=== PATIENT | male | born 1970 | race Caucasian/White ===

== ENCOUNTER 2023-10-03 12:05 | Emergency (ER) | payer MEDICAID, SELFPAY ==
[2023-10-03] VITALS (11 sets, daily range): BP systolic 113–147; BP diastolic 80–104; PULSE 83; RESP 16; TEMP 36.4; O2SAT 95–100; BMI 22.7
[2023-10-03 12:38] LABS: Basophils Percent Auto 0.3 % (0.2-2.0); Eosinophils Percent Auto 0.3 % (0.9-7.0); Hematocrit 44.6 % (42.0-54.0); Hemoglobin 14.6 g/dL (14.0-18.0); Immature Granulocytes Abs Auto 0.01 10^3/uL (0.00-0.03); Immature Granulocytes Pct Auto 0.3 % (0.0-0.5); Lymphocytes Absolute Auto 1.1 10^3/uL (1.2-3.8); Lymphocytes Percent Auto 28.7 % (20.5-60.0); Mean Corpuscular HGB Conc 32.7 g/dL (29.9-35.2); Mean Corpuscular Hemoglobin 30.9 pg (25.9-34.0); Mean Corpuscular Volume 94.5 fL (80.0-94.0); Mean Platelet Volume 9.7 fL (9.5-13.5); Monocytes Absolute Auto 0.7 10^3/uL (0.3-0.8); Monocytes Percent Auto 16.5 % (1.7-12.0); Neutrophils Absolute Auto 2.1 10^3/uL (1.4-6.5); Neutrophils Percent Auto 53.9 % (43.0-75.0); Platelet Count 276 10^3/uL (150-450); Red Blood Count 4.72 10^6/uL (4.70-6.10); Red Cell Distribution Width 13.8 % (11.0-15.0); White Blood Count 3.9 10^3/uL (4.0-11.0)
[2023-10-03 12:41] LABS: Bilirubin Urine NEGATIVE (NEGATIVE); Blood Urine NEGATIVE (NEGATIVE); Clarity Urine CLEAR (CLEAR); Color Urine DK. YELLOW (YELLOW); Glucose Urine UA NEGATIVE (NEGATIVE); Ketones Urine 15 mg/dL (NEGATIVE); Leukocyte Esterase Urine NEGATIVE (NEGATIVE); Nitrite Urine NEGATIVE (NEGATIVE); Protein Urine TRACE mg/dL (NEG/TRACE); Specific Gravity Urine >=1.030 (1.005-1.025); pH Urine 5.5 (5.0-9.0)
--- NOTE | 2023-10-03 12:42 | ED.ABDPAIN1 ---
HPI - Abdominal Pain General Chief Complaint: Abdominal Pain Stated Complaint: ABDOMINAL PAIN Time Seen by Provider: 10/03/23 12:11 Source: patient Mode of arrival: walk-in History of Present Illness HPI narrative: 52-year-old male presents to the emergency department for abdominal pain. He is worried about his liver and his pancreas. He has been drinking heavily recently. The pain seems to be in the lower epigastric area. No vomiting fever or trauma. No constipation or diarrhea. He has no chest pain or shortness of breath. The pain is mild to moderate. Related Data Home Medications Medication Instructions Recorded Confirmed alprazolam 0.5 mg tablet (Xanax) 0.5 mg PO DAILY 10/03/23 10/03/23 Allergies Allergy/AdvReac Type Severity Reaction Status Date / Time No Known Drug Allergies Allergy Verified 10/03/23 12:14 Review of Systems ROS Narrative A ten point review of systems is negative except as noted above. Exam Narrative Exam Narrative: Nurses note and vital signs reviewed and patient is not hypoxic. General: The patient appears well and in no apparent distress. Patient is resting comfortably on cart. Skin: Warm, dry, no pallor noted. There is no rash noted. Head: Normocephalic, atraumatic Eye: Normal conjunctiva, no drainage Ears, Nose, Mouth, and Throat: oral mucosa is moist. Nares patent. Cardiovascular: Regular Rate and Rhythm Respiratory: Patient is in no distress, no accessory muscle use, lungs are clear to auscultation, no wheezing, rales or rhonchi Back: non-tender GI: Soft and nondistended. Minimal tenderness in the lower epigastric region. Musculoskeletal: The patient has no evidence of calf tenderness, no pitting edema, symmetrical pulses noted bilaterally Neurological: A&O, normal speech Psychiatric: Cooperative Constitutional Vital Signs, click to edit/add: Last Vital Signs Temp 97.6 F 10/03/23 12:14 Pulse 83 10/03/23 12:14 Resp 16 10/03/23 12:14 Pulse Ox 98 10/03/23 12:14 O2 Del Method Room Air 10/03/23 12:14 Course Vital Signs Vital signs: Vital Signs Temperature 97.6 F 10/03/23 12:14 Pulse Rate 83 10/03/23 12:14 Respiratory Rate 16 10/03/23 12:14 Pulse Oximetry 98 10/03/23 12:14 Oxygen Delivery Method Room Air 10/03/23 12:14 Temperature 97.6 F 10/03/23 12:14 Pulse Rate 83 10/03/23 12:14 Respiratory Rate 16 10/03/23 12:14 Pulse Oximetry 98 10/03/23 12:14 Oxygen Delivery Method Room Air 10/03/23 12:14 MDM - Abdominal Pain MDM Narrative Medical decision making narrative: Workup including CAT scan is negative and he is able to be discharged home. He was recommended to cut back on alcohol consumption. Treatment diagnosis and follow-up were discussed with the patient. Differential Diagnosis Differential diagnosis: Likely abdominal pain, constipation, diverticulitis and pancreatitis Lab Data Attestation: I reviewed the patient's lab results. Labs: Lab Results 10/03/23 10/03/23 Range/Units 12:19 12:25 WBC 3.9 L (4.0-11.0) 10^3/uL RBC 4.72 (4.70-6.10) 10^6/uL Hgb 14.6 (14.0-18.0) g/dL Hct 44.6 (42.0-54.0) % MCV 94.5 H (80.0-94.0) fL MCH 30.9 (25.9-34.0) pg MCHC 32.7 (29.9-35.2) g/dL RDW 13.8 (11.0-15.0) % Plt Count 276 (150-450) 10^3/uL MPV 9.7 (9.5-13.5) fL Neut % (Auto) 53.9 (43.0-75.0) % Lymph % (Auto) 28.7 (20.5-60.0) % [place] % (Auto) 16.5 H (1.7-12.0) % Eos % (Auto) 0.3 L (0.9-7.0) % Baso % (Auto) 0.3 (0.2-2.0) % Neut # (Auto) 2.1 (1.4-6.5) 10^3/uL Lymph # (Auto) 1.1 L (1.2-3.8) 10^3/uL [place] # (Auto) 0.7 (0.3-0.8) 10^3/uL Eos # (Auto) 0.0 (0.0-0.7) 10^3/uL Baso # (Auto) 0.0 (0.0-0.1) 10^3/uL Abs Immat Gran (auto) 0.01 (0.00-0.03) 10^3/uL Imm/Tot Granulo (auto) 0.3 (0.0-0.5) % Sodium 139 (136-145) mmol/L Potassium 3.6 (3.5-5.1) mmol/L Chloride 99 (98-107) mmol/L Carbon Dioxide 30.6 (21.0-32.0) mmol/L Anion Gap 13.0 BUN 13.0 (7.0-18.0) mg/dL Creatinine 1.02 (0.70-1.30) mg/dL Est GFR ( Amer) >60 (>=60) Est GFR (Non-Af Amer) >60 (>=60) BUN/Creatinine Ratio 12.7 Glucose 87 (74-106) mg/dL Calcium 9.2 (8.5-10.1) mg/dL Total Bilirubin 0.6 (0.2-1.0) mg/dL Direct Bilirubin 0.1 (0.0-0.2) mg/dL AST 24 (15-37) U/L ALT 36 (16-63) U/L Alkaline Phosphatase 57 (46-116) U/L Total Protein 8.3 H (6.4-8.2) g/dL Albumin 4.3 (3.4-5.0) g/dL Globulin 4.0 g/dL Albumin/Globulin Ratio 1.1 Amylase 81 (25-115) U/L Lipase 57.0 (16.0-77.0) U/L Urine Color Dk. yellow (YELLOW) Urine Clarity Clear (CLEAR) Urine pH 5.5 (5.0-9.0) Ur Specific [place] >=1.030 A (1.005-1.025) Urine Protein Trace (NEG/TRACE) mg/dL Urine Glucose (UA) Negative (NEGATIVE) mg/dL Urine Ketones 15 A (NEGATIVE) mg/dL Urine Occult Blood Negative (NEGATIVE) Urine Nitrite Negative (NEGATIVE) Urine Bilirubin Negative (NEGATIVE) Urine Urobilinogen 1.0 (0.2-1.0) EU/dL Ur Leukocyte Esterase Negative (NEGATIVE) Urine RBC 0-2 (0-2) #/HPF Urine WBC 0-2 A (NONE SEEN) #/HPF Ur Squamous Epith Cells Rare (NONE/RARE) #/LPF Urine Crystals Seen A (None Seen) #/HPF Amorphous Sediment Few Urine Bacteria None seen (NONE SEEN) #/HPF Urine Casts Seen A (NONE SEEN) #/LPF Hyaline Casts Many Urine Mucus Moderate A (NONE SEEN) Ethanol Quant <3 mg/dL Imaging Data CT scan - abdomen: Radiologist's impression: ITS Impressions Abdomen/Pelvis CT 10/03/23 13:00 IMPRESSION: 1. No acute findings. 2. Duodenal diverticulum. 3. Sigmoid diverticulosis. Electronically authenticated by: TYLER KNOWLES Date: 10/03/2023 13:51 Discharge Plan Discharge Stand Alone Forms: Portal Instructions Chief Complaint: Abdominal Pain Clinical Impression: Abdominal pain Patient Disposition: Home, Self-Care Time of Disposition Decision: 14:10 Condition: Good Mode of Transportation: Private Vehicle Prescriptions / Home Meds: No Action alprazolam [Xanax] 0.5 mg tablet 0.5 mg PO DAILY Instructions: Abdominal Pain (ED) Referrals: Physician,Non-Staff, MD [Primary Care Provider] - 1 week
[2023-10-03 12:52] LABS: Bacteria Urine NONE SEEN #/HPF (NONE SEEN); Crystals Seen? Seen #/HPF (None Seen); Mucus Urine MODERATE (NONE SEEN); RBC Urine 0-2 #/HPF (0-2); Squamous Epithelial Cell Urine RARE #/LPF (NONE/RARE); WBC Urine 0-2 #/HPF (NONE SEEN)
[2023-10-03 12:53] LABS: Amorphous Sediment Urine FEW; Cast Seen? SEEN #/LPF (NONE SEEN); Hyaline Casts Urine MANY
[2023-10-03 12:53] LABS: Alanine Aminotransferase 36 U/L (16-63); Albumin Globulin Ratio 1.1; Albumin Level 4.3 g/dL (3.4-5.0); Alkaline Phosphatase 57 U/L (46-116); Amylase 81 U/L (25-115); Aspartate Amino Transferase 24 U/L (15-37); BUN Creatinine Ratio 12.7; Bilirubin Direct 0.1 mg/dL (0.0-0.2); Bilirubin Total 0.6 mg/dL (0.2-1.0); Calcium 9.2 mg/dL (8.5-10.1); Carbon Dioxide 30.6 mmol/L (21.0-32.0); Chloride 99 mmol/L (98-107); Estimated GFR (African America >60 (>=60); Estimated GFR (Non-African Ame >60 (>=60); Glucose 87 mg/dL (74-106); Potassium 3.6 mmol/L (3.5-5.1); Sodium 139 mmol/L (136-145); Total Protein 8.3 g/dL (6.4-8.2)
--- NOTE | 2023-10-03 13:00 | CT_ITS ---
The [address] [address] Patient Name: TOBY SIMON MRN: [id number] date: 1970 Sex: M Assigned Patient Location: ER Current Patient Location: Accession/Order Number: [id number] Exam Date: 10/03/2023 13:15 Report Date: 10/03/2023 13:51 At the request of: SOLEDAD TRINIDAD Procedure: CT abdomen pelvis w con CT abdomen pelvis w con, 10/03/2023 1:15 PM EDT INDICATION: Upper abdominal pain, intermittent x2 months. COMPARISON: CT abdomen and pelvis 08/02/2022 TECHNIQUE: Axial images of the abdomen and pelvis were obtained after the administration of IV contrast. Multiplanar reformatted images were generated and reviewed as needed. Dose reduction techniques were achieved by using automated exposure control and/or adjustment of mA and/or kV according to patient size and/or use of iterative reconstruction technique. FINDINGS: No consolidation or effusion. The liver, gallbladder, pancreas, spleen and adrenals are unremarkable. Symmetric nephrograms without evidence of obstruction. No urolithiasis. No urinary bladder wall thickening or perivesicular fat stranding. Central calcifications within a normal-sized prostate gland. No aortic aneurysm. No bowel obstruction or gross findings of acute inflammation. 1.6 cm diverticulum third portion of the duodenum. Normal appendix. Sigmoid diverticulosis. No pneumatosis, pneumoperitoneum or ascites. No mesenteric or retroperitoneal lymphadenopathy. No acute fracture. CT/CT abdomen pelvis w con IMPRESSION: 1. No acute findings. 2. Duodenal diverticulum. 3. Sigmoid diverticulosis. Electronically authenticated by: TYLER KNOWLES Date: 10/03/2023 13:51
[2023-10-03 13:07] LABS: Ethanol <3 mg/dL
--- NOTE | 2023-10-03 17:10 | PC.NURSE ---
Patient called the ER wanting to discuss more lab results with this RN. Patient educated on lab result questions that patient had. Pt instructed to call PCP to discuss further testing that is not performed in the ER. Pt states understanding. This RN educated patient for approximately 12 minutes on the phone to discuss lab results.
== END 2023-10-03 14:24 | disposition home or self-care (01) ==
PROVIDERS: Emergency Provider Emergency Medicine
DX: R10.9 Unspecified abdominal pain (principal); Z79.899 Other long term (current) drug therapy
CPT/HCPCS: 36415; 74177; 80048; 80076; 80320; 81001; 82150; 83690; 85025; 99284; Q9967

== ENCOUNTER 2024-05-20 12:52 | Outpatient (OUT) | payer MEDICAID, SELFPAY ==
[2024-05-20 13:49] LABS: Basophils Percent Auto 0.4 % (0.2-2.0); Eosinophils Absolute Auto 0.1 10^3/uL (0.0-0.7); Eosinophils Percent Auto 1.3 % (0.9-7.0); Hematocrit 38.2 % (42.0-54.0); Hemoglobin 12.7 g/dL (14.0-18.0); Immature Granulocytes Abs Auto 0.01 10^3/uL (0.00-0.03); Immature Granulocytes Pct Auto 0.2 % (0.0-0.5); Lymphocytes Absolute Auto 1.8 10^3/uL (1.2-3.8); Lymphocytes Percent Auto 37.2 % (20.5-60.0); Mean Corpuscular HGB Conc 33.2 g/dL (29.9-35.2); Mean Corpuscular Hemoglobin 31.7 pg (25.9-34.0); Mean Corpuscular Volume 95.3 fL (80.0-94.0); Mean Platelet Volume 10.1 fL (9.5-13.5); Monocytes Absolute Auto 0.4 10^3/uL (0.3-0.8); Monocytes Percent Auto 8.5 % (1.7-12.0); Neutrophils Absolute Auto 2.5 10^3/uL (1.4-6.5); Neutrophils Percent Auto 52.4 % (43.0-75.0); Platelet Count 288 10^3/uL (150-450); Red Blood Count 4.01 10^6/uL (4.70-6.10); Red Cell Distribution Width 12.8 % (11.0-15.0); White Blood Count 4.7 10^3/uL (4.0-11.0)
[2024-05-20 14:09] LABS: Erythrocyte Sedimentation Rate 11 mm/hr (<=20)
[2024-05-20 14:19] LABS: C Reactive Protein <0.50 mg/dL (<=0.50); Uric Acid 3.2 mg/dL (3.5-7.2)
[2024-05-21 09:09] LABS: Lyme Total Antibody CIA Negative (Negative)
[2024-05-21 12:09] LABS: Anti-DNA (DS) Ab Qn 1 IU/mL (0-9); Antichromatin Antibodies <0.2 AI (0.0-0.9); RNP Antibodies <0.2 AI (0.0-0.9); Rheumatoid Factor (RF) 10.8 IU/mL (<14.0); Sjogren's Anti-SS-A <0.2 AI (0.0-0.9); Sjogren's Anti-SS-B <0.2 AI (0.0-0.9)
[2024-05-22 13:09] LABS: Antinuclear Antibodies, IFA Negative (.)
== END 2024-05-20 12:53 | disposition home or self-care (01) ==
PROVIDERS: Visit Provider Orthopaedic Surgery
DX: M25.50 Pain in unspecified joint (principal)
CPT/HCPCS: 36415; 81374; 84550; 85025; 85652; 86038; 86140; 86618

== ENCOUNTER 2024-08-07 07:31 | Day surgery (SDC) | payer MEDICAID, SELFPAY ==
--- NOTE | 2024-08-07 07:36 | MR_ITS ---
The [place] [id number] Patient Name: TOBY SIMON MRN: [id number] date: 1970 Sex: M Assigned Patient Location: MRI Current Patient Location: MRI Accession/Order Number: [id number] Exam Date: 08/07/2024 08:45 Report Date: 08/08/2024 07:36 At the request of: LUCA ZAMORA Procedure: MR hip LT w con HISTORY: Chronic left hip pain for multiple years. Evaluate for labral tear. MRI left hip 08/07/2024. COMPARISON: CT scan abdomen and pelvis 10/03/2023. TECHNIQUE: Multiplanar, multisequence MRI images of the pelvis and left hip were obtained following the fluoroscopic guided administration of dilute gadolinium into the left hip joint. FINDINGS: There is no evidence of avascular necrosis or fracture of the left hip. There is linear extension of contrast partially between the superolateral aspect of the labrum and the adjacent acetabulum. There is also mild thinning of the adjacent superolateral aspect of the acetabular cartilage in this region. The remainder of the labrum appears intact. There is a small amount of soft tissue edema along the lateral aspect of the left greater trochanter. However, no significant gluteal tendinopathy is seen. MR/MR hip LT w con IMPRESSION: 1. 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 2. Possible mild left greater trochanteric bursitis. Electronically authenticated by: NOEL FUENTES Date: 08/08/2024 07:36
--- NOTE | 2024-08-07 07:37 | FL_ITS ---
The [address] [address] Patient Name: TOBY SIMON MRN: [id number] date: 1970 Sex: M Assigned Patient Location: MRI Current Patient Location: MRI Accession/Order Number: [id number] Exam Date: 08/07/2024 08:00 Report Date: 08/07/2024 08:54 At the request of: LUCA ZAMORA Procedure: FL arthrogram hip EXAMINATION: FL arthrogram hip, FL guided needle placement HISTORY: Rule out labral tear COMPARISON: No relevant comparison available. TECHNIQUE: An arthrogram was performed under fluoroscopic guidance using non-ionic contrast material in the usual sterile manner after obtaining informed consent. Standard level fluoroscopic mode of operation utilized. 35 seconds of fluoroscopy. 1.97 mCi FINDINGS: JOINT: Left hip NEEDLE: 25 gauge, 3.5 spinal needle. MEDICATION: 2cc buffered 1% lidocaine for subcutaneous anesthesia 5cc Omnipaque-240 iodinated contrast to visualize the joint space 0.2 mL Dotarem, 5 mL 1% lidocaine. TECHNIQUE: Anterior approach with prior localization of the femoral artery. A single stick was successful in gaining access to the joint space. CLINICAL: No pain before or after the procedure COMPLICATIONS: None. BONES: Normal. No erosion, osteophyte, fracture, or bony lesion. CARTILAGE: Normal. No visible erosion or interruption. CAPSULE: Normal. No visible capsular laxity or labrum tear. EDGAR-ARTICULAR: Normal. No visible edgar-articular soft tissue abnormality. LOOSE BODIES: None. OTHER: Negative. PLEASE ALSO SEE THE SEPARATE MRI ARTHROGRAM PROCEDURE REPORT. FL/FL arthrogram hip IMPRESSION: Technically successful left hip arthrogram Electronically authenticated by: WALTER HOFF Date: 08/07/2024 08:54
--- NOTE | 2024-08-07 07:37 | FL_ITS ---
The [address] [address] Patient Name: TOBY SIMON MRN: [id number] date: 1970 Sex: M Assigned Patient Location: MRI Current Patient Location: MRI Accession/Order Number: [id number] Exam Date: 08/07/2024 08:00 Report Date: 08/07/2024 08:54 At the request of: LUCA ZAMORA Procedure: FL guided needle placement EXAMINATION: FL arthrogram hip, FL guided needle placement HISTORY: Rule out labral tear COMPARISON: No relevant comparison available. TECHNIQUE: An arthrogram was performed under fluoroscopic guidance using non-ionic contrast material in the usual sterile manner after obtaining informed consent. Standard level fluoroscopic mode of operation utilized. 35 seconds of fluoroscopy. 1.97 mCi FINDINGS: JOINT: Left hip NEEDLE: 25 gauge, 3.5 spinal needle. MEDICATION: 2cc buffered 1% lidocaine for subcutaneous anesthesia 5cc Omnipaque-240 iodinated contrast to visualize the joint space 0.2 mL Dotarem, 5 mL 1% lidocaine. TECHNIQUE: Anterior approach with prior localization of the femoral artery. A single stick was successful in gaining access to the joint space. CLINICAL: No pain before or after the procedure COMPLICATIONS: None. BONES: Normal. No erosion, osteophyte, fracture, or bony lesion. CARTILAGE: Normal. No visible erosion or interruption. CAPSULE: Normal. No visible capsular laxity or labrum tear. EDGAR-ARTICULAR: Normal. No visible edgar-articular soft tissue abnormality. LOOSE BODIES: None. OTHER: Negative. PLEASE ALSO SEE THE SEPARATE MRI ARTHROGRAM PROCEDURE REPORT. FL/FL guided needle placement IMPRESSION: Technically successful left hip arthrogram Electronically authenticated by: WALTER HOFF Date: 08/07/2024 08:54
--- OUTSIDE RECORDS SUMMARY | 2024-08-07 07:39 | XMS_ITS | CCD ---
Author Organization [facility] Care Team Providers Care Power System Operator Name Role Phone Unavailable Primary Care Provider PATTY La Consulting Unavailable WALTER HILARIO Admitting Unavailable WALTER HILARIO Attending Unavailable YAMILA, DANNY Attending Unavailable MECHE ARSHAD Consulting Unavailable DANNY DRISCOLL Admitting Unavailable REQUEST, NONE LISTED Primary Care Unavaila ble VENKAT FERRER Consulting Unavailable REQUEST, NONE LISTED Admitting Unavaila ble REQUEST, NONE LISTED Primary Care Unavaila ble REQUEST, NONE LISTED Consulting Unavaila ble REQUEST, NONE LISTED Attending Unavaila Kari Canales Unavailable Unallocated , Noms Provider Primary Care Provi anand JR. TEOFILO, LUCA Dos Santos Attending Unavaila bhavesh RED JR., GEORGE C Referring Unavaila Gómez Oropeza Attending Unavailab Gómez Ivory Admitting Unavailab Kari Maya Primary Care Unavailable Allergies Allergy Classification Reported Allergen(s) Allergy Type Date of Onset Reaction(s) Facility (15 sources) traZODone Drug Allergy Unknown, Comment:erecti on issue [facility] Other (5 sources) Allergies Reconciled Propensity to adverse reactions Unknown [facility] Other (1 source) traZODone Drug Allergy 4 [facility] Repository Medications Current Medications Medication Drug Class(es) Dates Sig (Normalized) Sig (Original) acetaminophen 500 mg oral tablet (1 source) Start: 10-03-2020 acetaminophen (TYLENOL) tablet 1,000 mg ALPRAZolam 1 mg oral tablet (10 sources) Benzodiazepine Start: 08-20-2023 take 1 tablet by mouth four times daily as needed ALPRAZolam 1 MG 1 tablet Orally four times a day PRN for 30 days Jul, Active Start: 07-19-2023 take 1 tablet by tres four times daily as needed ALPRAZolam 1 MG 1 tablet Orally four times a day PRN for 30 days Jun, Active Start: 06-19-2023 take 1 tablet by tres four times daily as needed ALPRAZolam 1 MG 1 tablet Orally four times a day PRN for 30 days May, Active Start: 05-18-2023 take 1 tablet by tres four times daily as needed ALPRAZolam 1 MG 1 tablet Orally four times a day PRN for 30 days Apr, Active Start: 03-20-2023 take 1 tablet by tres four times daily as needed ALPRAZolam 1 MG 1 tablet Orally four times a day PRN for 30 days Feb, Active Start: 01-09-2023 take 1 tablet by tres four times daily as needed ALPRAZolam 1 MG 1 tablet Orally four times a day PRN for 30 days Dec, Active Start: 12-04-2022 take 1 tablet by tres four times daily as needed ALPRAZolam 1 MG 1 tablet Orally four times a day PRN for 30 days November, Active Start: 09-28-2022 take 1 tablet by tres four times daily as needed ALPRAZolam 1 MG 1 tablet Orally four times a day PRN for 30 days Oct, Active ascorbic acid 500 mg oral tablet (1 source) Vitamin C take 3 tablets by mouth once daily ascorbic acid (VITAMIN C) 500 MG tablet Take 1,500 mg by mouth daily 0 Active finasteride 5 mg oral tablet (11 sources) 5-alpha Reductase Inhibitor take 1 tablet by mouth every twenty-four hours Finasteride 5 MG 1 tablet Orally Once a day for 90 days Active take 1.25 mg by mouth once daily finasteride (PROSCAR) 5 MG tablet Take 1.25 mg by mouth daily 0 Active methylPREDNISolone (3 sources) Corticosteroid Start: 05-12-2024 methylPREDNISolone (Medrol Dospak) 4 MG tablets Indications: Left hip pain Follow schedule on package instructions 21 tablet 05/12/2024 Active 1 ml morphine sulfate 2 mg/ml cartridge (2 sources) Opioid Agonist Start: 10-02-2020 take 2 mg by mouth every four hours as needed for pain 2 mg, Intravenous, EVERY 4 HOURS PRN, Pain Moderate (4-6), Starting 10/02/20 at 2152 If oral and IV narcotics ordered, use oral first and only use IV if oral is ineffective or cannot take oral. D o Not give oral and IV within 1 hour of each other unless specifically ordered. Start: 10-02-2020 End: 10-02-2020 morphine injection 4 mg 2 ml ondansetron 2 mg/ml injection (1 source) Serotonin-3 Receptor Antagonist Start: 10-02-2020 4 mg, Intravenous, EVERY 8 HOURS PRN, Nausea, Vomiting, Starting 10/02/20 at 2152 opzelura 1.5 % cream (2 sources) Start: 09-28-2022 Opzelura 1.5 % 1 application Externally Twice a day for 30 days Sep, Active ruxolitinib 15 MG/ML Topical Cream [Opzelura] (8 sources) Start: 09-28-2022 Opzelura 1.5 % 1 application Externally Twice a day for 30 days Sep, Active 3 ml sodium chloride 9 mg/ml injection (3 sources) Start: 10-02-2020 Intravenous, a t 75 mL/hr, CONTINUOUS, Starting 10/02/20 at 2214 Start: 10-02-2020 10 mL, Intrave nous, EVERY 12 HOURS SCHEDULED (2 times per day), First dose on 10/02/20 at 221 Start: 10-02-2020 take 10 mL intraveno us route once as needed 10 mL, Intravenous, PRN, Line Care, After every IV line use, Starting 10/02/20 at 2152 vitamin b 12 1 mg oral table t (1 source) Vitamin B12 vitamin B-12 (CY ANOCOBALAMIN) 1000 MCG tablet Take 250 mcg by mouth daily 0 Active VITAMIN D PO (1 source) VITAMIN D PO William e by mouth daily 0 Active Completed/Discontinued Medications Medication Drug Class(es) Dates Sig (Normalized) Sig (Original) ceFAZolin (ANCEF) 2000 mg in dextrose 5 % 50 mL IVPB (1 source) Start: 10-02-2020 End: 10-02-2020 ceFAZolin (ANCEF) 2000 mg in dextrose 5 % 50 mL IVPB 10 ml lidocaine hydrochloride 10 mg/ml injection (1 source) Antiarrhythmic, Amide Local Anesthetic Start: 10-02-2020 End: 10-02-2020 lidocaine 1 % injection 20 mL sodium chloride 0.9 % 9.5 mL with phenylephrine (BO-SYNEPHRINE) 5 mg (1 source) Start: 10-02-2020 End: 10-02-2020 sodium chloride 0.9 % 9.5 mL with phenylephrine (BO-SYNEPHRINE) 5 mg Problems Problem Classification Problem Date Documented Da te Episodic/Chronic Abdominal pain (4 sources) Unspecified abdominal pain; Translations: [UNSPECIFIED ABDOMINAL PAIN] Onset: 08-02-2022 Episodic Anxiety disorders (20 sources) Generalized anxiety disorder; Translations: [Generalized anxiety disorder] Chronic Disorders of lipid metabolism (5 sources) Hyperlipidemia; Translations: [Hyperlipidemia, unspecified] Chronic Genitourinary symptoms and ill-defined conditions (2 sources) Prolonged erection of penis; 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] Onset: 10-02-2020 10-02-2020 Chronic Joint disorders and dislocations; trauma-related (2 sources) Acetabular labrum tear 05-12-2024 Chronic Other circulatory disease (5 sources) Elevated blood-pressure reading without diagnosis of hypertension; Translations: [Elevated blood-pressure reading, without diagnosis of hypertension] Episodic Other non-traumatic joint disorders (2 sources) Hip pain; Translations: [Pain in left hip] 05-12-2024 Episodic Other non-traumatic joint disorders (2 sources) Multiple joint pain; Translations: [Pain in unspecified joint] 05-12-2024 Episodic Other nutritional; endocrine; and metabolic disorders (10 sources) Body mass index 30+ - obesity; Translations: [Body mass index (BMI) 32.0-32.9, adult] Chronic Other nutritional; endocrine; and metabolic disorders (5 sources) Obese class I; Translations: [Body mass index (BMI) 32.0-32.9, adult] Chronic Other screening for suspected conditions (not mental disorders or infectious disease) (1 source) Abnormal findings on diagnostic imaging of other abdominal regions, including retroperitoneum; Translations: [ABN FIND DX IMAG OTH AB REGION W/RP] Onset: 08-04-2022 Episodic Other skin disorders (15 sources) Alopecia; Translations: [Nonscarring hair loss, unspecified] Episodic Other skin disorders (10 sources) Vitiligo; Translations: [Vitiligo] Episodic Sprains and strains (2 sources) Acetabular labrum tear; Translations: [Other sprain of left hip, initial encounter] 05-12-2024 Episodic Results Test Name Value Interpretation Reference Range Facility ALL CBC WITH AUTO DIFFon BASOPHILS ABSOLUTE AUTO 0 [facility] Basophils/100 WBC (Bld) 0.4 % 0.2 - 2.0 % [facility] Eosinophils/100 WBC (Bld) 1.3 % 0.9 - 7.0 % [facility] Erythrocyte distribution width (RBC) [Ratio] 12.8 % 11.0 - 15.0 % [facility] Hematocrit (Bld) [Volume fraction] 38.2 % Low 42.0 - 54.0 % [facility] Health[facility] e Hemoglobin (Bld) [Mass/Vol] 12.7 g/dL Low 14.0 - 18.0 g/dL [facility] IMMATURE GRANULOCYTES ABS AUTO 0.01 [facility] Immature granulocytes/100 WBC (Bld) 0.2 % 0.0 - 0.5 % [facility] Interpretation and review of laboratory results Abnormal [facility] LYMPHOCYTES ABSOLUTE AUTO 1.8 [facility] Lymphocytes/100 WBC (Bld) 37.2 % 20.5 - 60.0 % [facility] MCH (RBC) [Entitic mass] 31.7 pg 25.9 - 34.0 pg [facility] MCHC (RBC) [Mass/Vol] 33.2 g/dL 29.9 - 35.2 g/dL [facility] MCV (RBC) [Entitic vol] 95.3 fL High 80.0 - 94.0 fL [facility] MONOCYTES ABSOLUTE AUTO 0.4 [facility] Monocytes/100 WBC (Bld) 8.5 % 1.7 - 12.0 % [facility] NEUTROPHILS ABSOLUTE AUTO 2.5 [facility] Neutrophils/100 WBC (Bld) 52.4 % 43.0 - 75.0 % [facility] Platelet mean volume (Bld) [Entitic vol] 10.1 fL 9.5 - 13.[address] [facility] Healthc are TBH EO # 0.1 [facility] PLT 288 [facility] TB RBC 4.01 Low [facility] WBC 4.7 [facility] Cytoo e XR Hip - left 3 Viewson 10-2 Imaging Result: AP and lateral left hip showed femoral head to be well centered in the acetabulum without evidence of subluxation or dislocation. There was good preservation of the joint space. There was no gross evidence of degenerative changes. There was no acute bony process including but limited to fracture and/or dislocation. Impression: No acute bony process left hip [facility] Radiology Study observation (narrative) [facility] CBC AUTO DIFFon 08-02-2022 BASO # 0.0 103/ul Normal 0.0-0.1 [facility] Comment on above: Performed By: #### C BC #### [facility] [address] [place] [address] Dr. Cedric Hamilton Basophils/100 WBC (Bld) 0.7 % Normal 0.2-2.0 [facility] Comment on above: Performed By: #### C BC #### [facility] [address] [place] [address] Dr. Cedric Hamilton EO # 0.1 103/ul Normal 0.0-0.7 [facility] Comment on above: Performed By: #### C BC #### [facility] [address] [place] [address] Dr. Cedric Hamilton Eosinophils/100 WBC (Bld) 2.4 % Normal 0.9-7.0 [facility] Comment on above: Performed By: #### C BC #### [facility] [address] [place] [address] Dr. Cedric Hamilton Erythrocyte distribution width (RBC) [Ratio] 13.0 % Normal 11.0-15.0 [facility] Comment on above: Performed By: #### C BC #### [facility] [address] [place] [address] Dr. Cedric Hamilton Hematocrit (Bld) [Volume fraction] 44.1 % Normal 42.0-54.0 [facility] Comment on above: Performed By: #### C BC #### [facility] [address] [place] [address] Dr. Cedric Hamilton Hemoglobin (Bld) [Mass/Vol] 14.2 g/dL Normal 14.0-18.0 [facility] Comment on above: Performed By: #### C BC #### [facility] [address] [place] [address] Dr. Cedric Hamilton IG # 0.01 10e3/ul Normal 0.00-0.03 [facility] Comment on above: Performed By: #### C BC #### [facility] [address] [place] [address] Dr. Cedric Hamilton IG % 0.2 % Normal 0.0-0.5 [facility] Comment on above: Performed By: #### C BC #### [facility] [address] [place] [address] Dr. Cedric Hamilton LYMPH # 1.6 103/ul Normal 1.2-3.8 [facility] Comment on above: Performed By: #### C BC #### [facility] [address] [place] [address] Dr. Cedric Hamilton Lymphocytes/100 WBC (Bld) 35.6 % Normal 20.5-60.0 [facility] Comment on above: Performed By: #### C BC #### [facility] [address] [place] [address] Dr. Cedric Hamilton MANUAL DIFF REQ NO Normal [facility] Comment on above: Performed By: #### C BC #### [facility] [address] [place] [address] Dr. Cedric Hamilton MCH (RBC) [Entitic mass] 31.6 pg Normal 25.9-34.0 [facility] Comment on above: Performed By: #### C BC #### [facility] [address] [place] [address] Dr. Cedric Hamilton MCHC (RBC) [Mass/Vol] 32.2 g/dL Normal 29.9-35.2 [facility] Comment on above: Performed By: #### C BC #### [facility] [address] [place] [address] Dr. Cedric Hamilton MCV (RBC) [Entitic vol] 98.2 fL Critically high 80.0-94.0 [facility] Comment on above: Performed By: #### C BC #### [facility] [address] [place] [address] Dr. Cedric Hamilton MONO # 0.7 103/ul Normal 0.3-0.8 [facility] Comment on above: Performed By: #### C BC #### [facility] [address] [place] [address] Dr. Cedric Hamilton Monocytes/100 WBC (Bld) 14.6 % Critically high 1.7-12.0 [facility] Comment on above: Performed By: #### C BC #### [facility] [address] [place] [address] Dr. Cedric Hamilton NEUT # 2.1 103/ul Normal 1.4-6.5 [facility] Comment on above: Performed By: #### C BC #### [facility] [address] [place] [address] Dr. Cedric Hamilton Neutrophils/100 WBC (Bld) 46.5 % Normal 43.0-75.0 [facility] Comment on above: Performed By: #### C BC #### [facility] [address] [place] [address] Dr. Cedric Hamilton Platelet mean volume (Bld) [Entitic vol] 8.9 fL Critically low 9.5-13.5 [facility] Comment on above: Performed By: #### C BC #### [facility] [address] [place] [address] Dr. Cedric Hamilton PLT 367 103/ul Normal 150-450 [facility] Comment on above: Performed By: #### C BC #### [facility] [address] [place], [place] [id number] Dr. Cedric Hamilton RBC 4.49 106/ul Critically low 4.70-6.10 [facility] Comment on above: Performed By: #### C BC #### [facility] [address] [place] [address] Dr. Cedric Hamilton WBC 4.5 103/ul Normal 4.0-11.0 [facility] Comment on above: Performed By: #### C #### [facility] [address] [address] ABD/PELV W CONon 08-02-19 CT ABD/PELV W CON CT SCAN OF THE ABDOMEN AND PELVIS WITH CONTRAST, 08/02/2022 3:20 PM EST COMPARISON: None. CLINICAL HISTORY: GENERALIZED ABDOMINAL PAIN that radiates to the left side of the back. Patient has no history of kidney stones. TECHNIQUE: 3 mm axial images performed through the abdomen and pelvis following the intravenous administration of 100 mL of Omnipaque 300. 3 mm sagittal and coronal MPR reconstructions performed. Dose reduction techniques were achieved by using automated exposure control and/or adjustment of mA and/or kV according to patient size and/or use of iterative reconstruction technique. ABDOMINAL CT SCAN FINDINGS: Allowing for some motion over the lung bases, they are clear. Normal heart size with no significant pericardial effusion. Mild fatty infiltration of the liver. Remaining solid organs and gallbladder have a normal appearance. There is a small air-filled diverticulum projecting superiorly from the distal third portion of the duodenum. There is some adjacent fatty stranding seen just to the left of midline of the superior mesenteric artery and also partially encasing the celiac artery and unclear if it is related due to the diverticulum (image #[id number], series 3 and image #[id number], series 5). Some nonenlarged retroperitoneal lymph nodes are present. Small fat-containing umbilical wall hernia with an opening orifice measuring 1.2 cm (image #82, series 3). Pelvic CT findings: Prostate and seminal vesicles have a normal appearance. Partially distended urinary bladder is unremarkable in appearance. Diverticulosis of the colon without clear CT findings to suspect colonic diverticulitis. Appendix is normal. No free fluid. No acute osseous abnormality. IMPRESSION: 1. Mild fatty infiltration of the liver. 2. Some nonspecific fatty stranding seen just to the left of midline of the superior mesenteric artery and partially encasing the celiac artery is in close proximity to a small diverticulum projecting superiorly from the distal third portion of the duodenum and likely unrelated but the possibility of subtle acute duodenal diverticulitis would be difficult to exclude. The latter is felt to be a less likely consideration. The fatty stranding is nonspecific but precautionary follow-up CT scan of the abdomen and pelvis with IV contrast recommended in 3 months to assess for any interval change. 3. Some diverticulosis of the colon without CT findings to suspect any acute colonic diverticulitis. No bowel obstruction. The appendix is normal. 4. Small fat-containing umbilical hernia. Electronically authenticated by: Axel FERRER Date: 2022-08-02 17:07 Normal [facility] ER URINE PROFILEon 3 Bilirubin Ql (U) Negative Normal NEGATIVE [facility] Comment on above: Performed By: #### E RUR ####[facility] [address] [place], [place] [address]Dr. Mailan Hamilton Clarity (U) CLEAR Normal CLEAR [facility] Comment on above: Performed By: #### E RUR ####[facility] [address] [place], [place] [address]Dr. Yilan Hamilton Color (U) YELLOW Normal YELLOW [facility] Comment on above: Performed By: #### E RUR ####[facility] [address] [place], [place] [address]Dr. Yilan Hamilton ERUAHD A micrscopic examination will be performed if indicated. Normal [facility] Comment on above: Performed By: #### E RUR ####[facility] [address] [place], [place] [address]Dr. Yilan Hamilton Glucose Ql (U) Negative Normal NEGATIVE [facility] Comment on above: Performed By: #### E RUR ####[facility] [address] [place], [place] [address]Dr. Yilan Hamilton Hemoglobin Ql (U) Negative Normal NEGATIVE [facility] Comment on above: Performed By: #### E RUR ####[facility] [address] [place], [place] [address]Dr. Yilan Hamilton Ketones Ql (U) Negative Normal NEGATIVE [facility] Comment on above: Performed By: #### E RUR ####[facility] [address] [place], [place] [address]Dr. Yilan Hamilton LEUKOCYTES Negative Normal NEGATIVE [facility] Comment on above: Performed By: #### E RUR ####[facility] [address] [place], [place] [address]Dr. Cedric Hamilton Nitrite Ql (U) Negative Normal NEGATIVE [facility] Comment on above: Performed By: #### E RUR ####[facility] [address] [address]Dr. Cedric Hamilton pH (U) 5.5 [pH] Normal 5-9 [facility] Comment on above: Performed By: #### E RUR ####[facility] [address] [address]Dr. Cedric Hamilton SPEC GRAVITY 1.025 Normal 1.005-<=1.025 [facility] Comment on above: Performed By: #### E RUR ####[facility] [address] [address]DrRitesh Hamilton UA PROTEIN Negative Normal NEGATIVE/ TRACE [facility] Comment on above: Performed By: #### E RUR ####[facility] [address] [address]DrRitesh Hamilton UR MICRO IND NOT INDICATED Normal [facility] Comment on above: Performed By: #### E RUR ####[facility] [address] [address]DrRitesh Hamilton Urobilinogen Qn (U) 0.2 {Cherri'U}/dL Normal 0.2 - 1. 0 [facility] Comment on above: Performed By: #### E RUR ####[facility] [address] [address]DrRitesh Hamilton LACTATE/LACTIC ACIDon 2022 Lactate [Moles/Vol] 2.4 mmol/L Critically high 0.4-1.9 [facility] Comment on above: Performed By: #### L ACT #### [facility] [address] [address] [address] Cedric Hamilton Lactate [Moles/Vol] 3.5 mmol/L Critically high 0.4-1.9 [facility] Comment on above: Performed By: #### L ACT #### [facility] [address] [address] [address] Cedric Hamilton LIPASEon 08-02-2022 Lipase [Catalytic activity/Vol] 160.0 U/L Normal 73.0-393.0 [facility] Comment on above: Performed By: #### H STROPN, CMP, LIPA ####[facility] [address] [address]DrRitesh Hamilton PROF 14(COMP METB)on 023 Albumin [Mass/Vol] 3.8 g/dL Normal 3.4-5.0 [facility] Comment on above: Performed By: #### H STROPN, CMP, LIPA ####[facility] [address] [address]DrRitesh Hamilton Albumin/Globulin [Mass ratio] 0.9 {ratio} Normal [facility] Comment on above: Performed By: #### H STROPN, CMP, LIPA ####[facility] [address] [address]DrRitesh Hamilton ALP [Catalytic activity/Vol] 82 U/L Normal 46-116 [facility] Comment on above: Performed By: #### H STROPN, CMP, LIPA ####[facility] [address] [address]Dr. Cedric Hamilton ALT [Catalytic activity/Vol] 26 U/L Normal 16-63 [facility] Comment on above: Performed By: #### H STROPN, CMP, LIPA ####[facility] [address] [address]DrRitesh Hamilton Anion gap [Moles/Vol] 11.5 mmol/L Normal [facility] Comment on above: Performed By: #### H STROPN, CMP, LIPA ####[facility] [address] [address]DrRitesh Hamilton AST [Catalytic activity/Vol] 15 U/L Normal 15-37 [facility] Comment on above: Performed By: #### H STROPN, CMP, LIPA ####[facility] [address] [address]DrRitesh Hamilton Bilirubin [Mass/Vol] 0.3 mg/dL Normal 0.2-1.0 [facility] Comment on above: Performed By: #### H STROPN, CMP, LIPA ####[facility] [address] [address]Dr. Cedric Hamilton Calcium [Mass/Vol] 9.1 mg/dL Normal 8.5-10.1 [facility] Comment on above: Performed By: #### H STROPN, CMP, LIPA ####[facility] [address] [address]Dr. Cedric Hamilton Chloride [Moles/Vol] 103 mmol/L Normal 98-107 [facility] Comment on above: Performed By: #### H STROPN, CMP, LIPA ####[facility] [address] [place], [place] [address]Dr. Cedric Hamilton CO2 [Moles/Vol] 29.4 mmol/L Normal 21.0-32.0 [facility] Comment on above: Performed By: #### H STROPN, CMP, LIPA ####[facility] [address] [place], [place] [address]Dr. Cedric Hamilton Creatinine [Mass/Vol] 0.87 mg/dL Normal 0.70-1.30 [facility] Comment on above: Performed By: #### H STROPN, CMP, LIPA ####[facility] [address] [place], [place] [address]Dr. Cedric Hamilton EGFR-AF SYRIAN >60 Normal >=60 [facility] Comment on above: Performed By: #### H STROPN, CMP, LIPA ####[facility] [address] [place], [place] [address]Dr. Cedric Hamilton EGFR-NON AF SYRIAN >60 Normal >=60 [facility] Comment on above: Performed By: #### H STROPN, CMP, LIPA ####[facility] [address] [place] [address]Dr. Cedric Hamilton Globulin (S) [Mass/Vol] 4.0 g/dL Normal [facility] Comment on above: Performed By: #### H STROPN, CMP, LIPA ####[facility] [address] [place] [address]Dr. Mailucretia Hamilton Glucose [Mass/Vol] 108 mg/dL Critically high 74-106 [facility] Comment on above: Performed By: #### H STROPN, CMP, LIPA ####[facility] [address] [place] [address]Dr. Cedric Hamilton Potassium [Moles/Vol] 3.9 mmol/L Normal 3.5-5.1 [facility] Comment on above: Performed By: #### H STROPN, CMP, LIPA ####[facility] [address] [place] [address]Dr. Cedric Hamilton Protein [Mass/Vol] 7.8 g/dL Normal 6.4-8.2 [facility] Comment on above: Performed By: #### H STROPN, CMP, LIPA ####[facility] [address] [place] [address]Dr. Cedric Hamilton Sodium [Moles/Vol] 140 mmol/L Normal 136-145 [facility] Comment on above: Performed By: #### H STROPN, CMP, LIPA ####[facility] [address] [place] [address]Dr. Cedric Hamilton Urea nitrogen [Mass/Vol] 11.0 mg/dL Normal 7.0-18.0 [facility] Comment on above: Performed By: #### H STROPN, CMP, LIPA ####[facility] [address] [place] [address]Dr. Cedric Hamilton Urea nitrogen/Creatinine [Mass ratio] 12.6 mg/mg Normal [facility] Comment on above: Performed By: #### H STROPN, CMP, LIPA ####[facility] [address] [place] [address]Dr. Cedric Hamilton PROTIMEon 08-02-2022 INR Coag (PPP) [Relative time] 0.94 {INR} Normal [facility] Comment on above: Performed By: #### P TT, PT #### [facility] [address] [address] [address] Cedric Hamilton INR GUIDELINES SEE BELOW Normal [facility] Comment on above: Result Comment: SARY RED INR: 2.0 - 3.0 CONDITIONS NOT LISTED BELOW 2.5 - 3.5 FOR PROSTHETIC HEART VALVE REPLACEMENT 2.5 - 3.5 RECURRENT THROMBOSIS Performed By: #### P TT, PT #### [facility] [address] [address] [address] Cedric Hamilton PT Coag (PPP) [Time] 10.0 s Normal 9.0-11.6 [facility] Comment on above: Performed By: #### P TT, PT #### [facility] [address] [address] [address] Cedric Hamilton PTTon 08-02-2022 aPTT Coag (Bld) [Time] 31.2 s Normal 22.3-36.2 [facility] Comment on above: Performed By: #### P TT, PT #### [facility] [address] [address] [address] Cedric Hamilton TROPONIN, HIGH SENSITIVITYon 08-02-2022 HSTROP 5.7 pg/mL Normal 4.0-76.1 [facility] Comment on above: Result Comment: CUT- OFF POINTS HAVE BEEN ESTABLISHED BASED ON THE FOURTH UNIVERSAL DEFINITIONS OF MYOCARDIAL INFARCTION. THE UPPER REFERENCE LIMIT (URL) OF TROPONIN, DEFINED THE 99TH PERCENTILE OF cTnI DISTRIBUTION IN A REFERENCE POPULATION, HAS BEEN CONFIRMED THE DECISION THRESHOLD FOR ID DIAGNOSIS. Performed By: #### H STROPN, CMP, LIPA #### [facility] [address] [address] [address] Cedric Hamilton CBC AUTO DIFFon 05-04-2022 BASO # 0.0 103/ul Normal 0.0-0.1 [facility] Comment on above: Performed By: #### D ATCBC ####[facility] [address] [place] [address]Dr. Cedric Hamilton Basophils/100 WBC (Bld) 0.6 % Normal 0.2-2.0 [facility] Comment on above: Performed By: #### D ATCBC ####[facility] [address] [place] [address]Dr. Cedric Hamilton EO # 0.2 103/ul Normal 0.0-0.7 [facility] Comment on above: Performed By: #### D ATCBC ####[facility] [address] [place] [address]Dr. Cedric Hamilton Eosinophils/100 WBC (Bld) 3.4 % Normal 0.9-7.0 [facility] Comment on above: Performed By: #### D ATCBC ####[facility] [address] [place], [place] [address]Dr. Cedric Hamilton Erythrocyte distribution width (RBC) [Ratio] 12.5 % Normal 11.0-15.0 [facility] Comment on above: Performed By: #### D ATCBC ####[facility] [address] [place], [place] [address]Dr. Cedric Hamilton Hematocrit (Bld) [Volume fraction] 44.0 % Normal 42.0-54.0 [facility] Comment on above: Performed By: #### D ATCBC ####[facility] [address] [place], [place] [address]Dr. Cedric Hamilton Hemoglobin (Bld) [Mass/Vol] 14.8 g/dL Normal 14.0-18.0 [facility] Comment on above: Performed By: #### D ATCBC ####[facility] [address] [place], [place] [address]Dr. Cedric Hamilton IG # 0.01 10e3/ul Normal 0.00-0.03 [facility] Comment on above: Performed By: #### D ATCBC ####[facility] [address] [place], [place] [address]Dr. Cedric Hamilton IG % 0.2 % Normal 0.0-0.5 [facility] Comment on above: Performed By: #### D ATCBC ####[facility] [address] [place], [place] [address]Dr. Cedric Hamilton LYMPH # 1.7 103/ul Normal 1.2-3.8 [facility] Comment on above: Performed By: #### D ATCBC ####[facility] [address] [place], [place] [address]Dr. Cedric Hamilton Lymphocytes/100 WBC (Bld) 36.5 % Normal 20.5-60.0 [facility] Comment on above: Performed By: #### D ATCBC ####[facility] [address] [place], [place] [address]Dr. Cedric Hamilton MCH (RBC) [Entitic mass] 31.2 pg Normal 25.9-34.0 [facility] Comment on above: Performed By: #### D ATCBC ####[facility] [address] [place], [place] [address]Dr. Cedric Hamilton MCHC (RBC) [Mass/Vol] 33.6 g/dL Normal 29.9-35.2 [facility] Comment on above: Performed By: #### D ATCBC ####[facility] [address] [place], [place] [address]Dr. Cedric Haimlton MCV (RBC) [Entitic vol] 92.6 fL Normal 80.0-94.0 [facility] Comment on above: Performed By: #### D ATCBC ####[facility] [address] [place], [place] [address]Dr. Cedric Hamilton MONO # 0.5 103/ul Normal 0.3-0.8 [facility] Comment on above: Performed By: #### D ATCBC ####[facility] [address] [place], [place] [address]Dr. Cedric Hamilton Monocytes/100 WBC (Bld) 9.6 % Normal 1.7-12.0 [facility] Comment on above: Performed By: #### D ATCBC ####[facility] [address] [place], [place] [address]Dr. Cedric Hamilton NEUT # 2.4 103/ul Normal 1.4-6.5 [facility] Comment on above: Performed By: #### D ATCBC ####[facility] [address] [place], [place] [address]Dr. Cedric Hamilton Neutrophils/100 WBC (Bld) 49.7 % Normal 43.0-75.0 [facility] Comment on above: Performed By: #### D ATCBC ####[facility] [address] [place] [address]Dr. Cedric Hamilton Platelet mean volume (Bld) [Entitic vol] 10.0 fL Normal 9.5-13.5 [facility] Comment on above: Performed By: #### D ATCBC ####[facility] [address] [place] [id number]. Cedric Hamilton PLT 267 103/ul Normal 150-450 [facility] Comment on above: Performed By: #### D ATCBC ####[facility] [address] [place] [address]Dr. Cedric Hamilton RBC 4.75 106/ul Normal 4.70-6.10 [facility] Comment on above: Performed By: #### D ATCBC ####[facility] [address] [place] [address]Dr. Cedric Hamilton WBC 4.8 103/ul Normal 4.0-11.0 [facility] Comment on above: Performed By: #### D ATCBC ####[facility] [address] [place] [address]DrRitesh Hamilton RACQUEL - TSHon 05-04-2022 TSH 2.382 uIU/mL Normal 0.358-3.740 [facility] Comment on above: Performed By: #### D ATBMP, DATTSH, DATPSA #### [facility] [address] [place] [address] Dr. Cedric Hamilton TSH RANGE SEE BELOW Normal [facility] Comment on above: Result Comment: <0.3 4 UIU/ml HYPERTHYROID 0.34-5.60 UIU/ml EUTHYROID >5.60 UIU/ml HYPOTHYROID Performed By: #### D ATBMP, DATTSH, DATPSA #### [facility] [address] [place] [address] Dr. Cedric Hamilton RACQUEL- BMP WITH LIPIDon 2021 Anion gap [Moles/Vol] 12.7 mmol/L Normal [facility] Comment on above: Performed By: #### D ATBMP, DATTSH, DATPSA #### [facility] [address] [place] [address] Dr. Cedric Hamilton Calcium [Mass/Vol] 9.2 mg/dL Normal 8.5-10.1 [facility] Comment on above: Performed By: #### D ATBMP, DATTSH, DATPSA #### [facility] [address] [place] [address] Dr. Cedric Hamilton Chloride [Moles/Vol] 106 mmol/L Normal 98-107 [facility] Comment on above: Performed By: #### D ATBMP, DATTSH, DATPSA #### [facility] [address] [place] [address] Dr. Cedric Hamilton Cholesterol [Mass/Vol] 211 mg/dL Critically high <=200 [facility] Comment on above: Performed By: #### D ATBMP, DATTSH, DATPSA #### [facility] [address] [place] [address] Dr. Cedric Hamilton Cholesterol in HDL [Mass/Vol] 53 mg/dL Normal 40-60 [facility] Comment on above: Performed By: #### D ATBMP, DATTSH, DATPSA #### [facility] [address] [place] [address] Dr. Cedric Hamilton Cholesterol in LDL [Mass/Vol] 145.4 mg/dL Normal [facility] Comment on above: Performed By: #### D ATBMP, DATTSH, DATPSA #### [facility] [address] [place] [address] Dr. Cedric Hamilton CO2 [Moles/Vol] 27.3 mmol/L Normal 21.0-32.0 [facility] Comment on above: Performed By: #### D ATBMP, DATTSH, DATPSA #### [facility] [address] [place] [address] Dr. Cedric Hamilton Creatinine [Mass/Vol] 0.97 mg/dL Normal 0.70-1.30 [facility] Comment on above: Performed By: #### D ATBMP, DATTSH, DATPSA #### [facility] [address] [address] [address] Cedric Hamilton EGFR-AF SYRIAN >60 Normal >=60 [facility] Comment on above: Performed By: #### D ATBMP, DATTSH, DATPSA #### [facility] [address] [address] [address] Cedric Hamilton EGFR-NON AF SYRIAN >60 Normal >=60 [facility] Comment on above: Performed By: #### D ATBMP, DATTSH, DATPSA #### [facility] [address] [address] [address] Cedric Hamilton Glucose [Mass/Vol] 91 mg/dL Normal 74-106 [facility] Comment on above: Performed By: #### D ATBMP, DATTSH, DATPSA #### [facility] [address] [address] [address] Cedric Hamilton HDL NORMAL > or = 60 mg/dl - LOW CARDIOVASCULAR RISK <40 mg/dl - HIGH CARDIOVASCULAR RISK Normal [facility] Comment on above: Performed By: #### D ATBMP, DATTSH, DATPSA #### [facility] [address] [address] [address] Cedric Hamilton LDL CALC NORMAL SEE BELOW Normal [facility] Comment on above: Result Comment: <100 mg/dl OPTIMAL 100 - 129 mg/dl NEAR OR ABOVE OPTIMAL 130 - 159 mg/dl BORDERLINE HIGH 160 - 189 mg/dl HIGH >190 mg/dl VERY HIGH Performed By: #### D ATBMP, DATTSH, DATPSA #### [facility] [address] [address] [address] Cedric Hamilton Potassium [Moles/Vol] 5.0 mmol/L Normal 3.5-5.1 [facility] Comment on above: Performed By: #### D ATBMP, DATTSH, DATPSA #### [facility] [address] [address] [address] Cedric Hamilton Sodium [Moles/Vol] 141 mmol/L Normal 136-145 [facility] Comment on above: Performed By: #### D ATBMP, DATTSH, DATPSA #### [facility] [address] [address] [address] Cedric Hamilton Triglyceride [Mass/Vol] 63 mg/dL Normal <=150 [facility] Comment on above: Performed By: #### D ATBMP, DATTSH, DATPSA #### [facility] [address] [address] [address] Cedric Hamilton Urea nitrogen [Mass/Vol] 8.0 mg/dL Normal 7.0-18.0 [facility] Comment on above: Performed By: #### D ATBMP, DATTSH, DATPSA #### [facility] [address] [address] [address] Cedric Hamilton Urea nitrogen/Creatinine [Mass ratio] 8.2 mg/mg Normal [facility] Comment on above: Performed By: #### D ATBMP, DATTSH, DATPSA #### [facility] [address] [address] [address] Cedric Hamilton VLDL CALC 12.6 mg/dL Normal [facility] Comment on above: Performed By: #### D ATBMP, DATTSH, DATPSA #### [facility] [address] [address] [address] Cedric Hamilton Vital Signs Date Time Vital Sign Value Performing Clinician Facility 05-12-2024 11:28040 Body height 170.2 cm Jr. Stepanic DO Work Phone: [facility] 05-12-2024 11:28-0400 Body mass index (BMI) [Ratio] 22.71 kg/m2 Jr. Stepanic DO Work Phone: [facility] 05-12-2024 11:28040 Body weight 65.77 kg Jr. Stepanic DO Work Phone: [facility] 10-03-2020 07:27-0400 Body Temperature 97.3 [degF] [facility] Work Phone: 10-03-2020 07:27-0400 BP Diastolic 80 mm[Hg] [facility] Work Phone: 10-03-2020 07:27-0400 BP Systolic 122 mm[Hg] Aisha Zuniga [facility] Work Phone: 10-03-2020 07:27-0400 Pulse (Heart Rate) 75 /min [facility] Work Phone: 10-03-2020 07:27-0400 Pulse Oximetry 96 % [facility]isha [facility] Work Phone: 10-03-2020 07:27-0400 Respiratory Rate 18 /min Aisha [facility] Work Phone: 10-02-2020 17:37-0500 BMI (Body Mass Index) 28.19 kg/m2 Aisha Zuniga [facility] Work Phone: 10-02-2020 17:37-0500 Body weight 81.65 kg Aishaelvia [facility] Work Phone: 10-02-2020 17:37-0500 Height 170.2 cm Aisha [facility] Work Phone: Encounters Encounter Date Encounter Type Care Provider Facility Start: 06-13-2024 ambulatory Gómez Mehta acility:[facility] Start: 05-20-2024 End: 05-20-2024 Clinisync Result Encounter Jr. Luca Dos Santos Stepsena DO Work Phone: [facility] Unsolicited Start: 05-20-2024 End: 05-20-2024 Clinisync Result Encounter Jr. Luca Dos Santos Stepanic DO Work Phone: [facility] Unsolicited Start: 05-12-2024 End: 05-12-2024 Bamboo flowsheet Jr. Luca Dos Santos Stepanic DO Work Phone: [facility] Start: 05-12-2024 End: 05-12-2024 Bamboo flowsheet Jr. Luca Dos Santos Teofilo DO Work Phone: [facility] Start: 05-12-2024 End: 05-12-2024 Office outpatient kami 45 minutes Ritesh Dos Santos Teofilo DO Work Phone: [facility] Comment on above: Left hip pain (Prima ry Dx); Polyarthralgia; Tear of left acetabular labrum, initial encounter Start: 05-12-2024 End: 05-12-2024 ambulatory LUCA HU Not Available Start: 08-20-2023 End: 08-20-2023 ambulatory Kari Irizarry Other [employer] Other Start: 08-20-2023 Telephone encounter Kari Irizarry [facility] Start: 07-18-2023 End: 07-18-2023 ambulatory Kari Irizarry Other [employer] Other Start: 07-18-2023 Telephone encounter Kari Irizarry [facility] Start: 06-19-2023 End: 06-19-2023 ambulatory Kari Irizarry Other [employer] Other Start: 06-19-2023 Telephone encounter Kari Irizarry [facility] Start: 05-18-2023 End: 05-18-2023 ambulatory Kari Irizarry Other [employer] Other Start: 05-18-2023 Telephone encounter Kari Irizarry [facility] Start: 03-19-2023 End: 03-19-2023 ambulatory Kari Irizarry Other [employer] Other Start: 03-19-2023 Telephone encounter Kari Irizarry [facility] Start: 01-08-2023 End: 01-08-2023 ambulatory Kari Irizarry Other [employer] Other Start: 01-08-2023 Telephone encounter Kari Irizarry [facility] Start: 12-01-2022 End: 12-01-2022 ambulatory Kari Irizarry Other [employer] Other Start: 12-01-2022 Telephone encounter Kari Irizarry [facility] Start: 11-16-2022 End: 11-16-2022 ambulatory Kari Irizarry Other [employer] Other Start: 11-16-2022 Telephone encounter Kari Irizarry [facility] Start: 10-30-2022 End: 10-30-2022 ambulatory Kari Irizarry Other [employer] Other Start: 10-30-2022 Telephone encounter Kari Irizarry [facility] Start: 08-02-2022 End: 08-02-2022 ambulatory DANNY DRISCOLL Facility:[facility] Start: 05-04-2022 End: 05-05-[address] KIKO MOORE REQUEST Facility:[facility] Start: 09-20-2021 Adult health examination Kari Irizarry Other [employer] Other Start: 10-02-2020 End: 10-03-2020 Patient encounter procedure PATTY PURI [facility] Start: 10-02-2020 End: 10-03-2020 Emergency department patient visit Aisha Rousseau Work Phone: [address] Med Surg Comment on above: Priapism (Primary Dx ) Procedures Date Procedure Procedure Detail Performing Clinician Start: 05-20-2024 ALL CBC WITH AUTO DIFF Jr. Luca Red DO Work Phone: Start: 05-12-2024 Radex hip unilateral with pelvis 2-3 views Jr. Luca Red DO Work Phone: Start: 05-04-2022 PSA screening DANNY LAM Comment on above: Performed By: #### D ATBMP, DATTSH, DATPSA #### [facility] [address] [place] [address] Dr. Cedric Hamilton Start: 10-02-2020 VENOUS BLOOD GAS, PO INT OF CARE Aisha Rousseau Work Phone: Screening for malign ant neoplasm of colon Kari Irizarry Other Screening for malign ant neoplasm of prostate Kari Irizarry Other Plan of Treatment Date Care Activity Detail Author Start: 06-11-2024 End: 06-11-2024 Patient encounter procedure 06/11/2024 9:45 AM EST Office Visit [facility] [address] [place] [address] Jr. Luca Red, DO [address] [place] [address] [facility] Start: 06-04-2024 End: 06-04-2024 Patient encounter procedure 06/04/2024 9:45 AM EST Office Visit [facility] [address] [place] [phone] Jr. Luca Red, DO [address] [facility] [address] [place] [address] [facility] Start: 05-12-2024 End: 05-12-2025 C reactive protein [Mass/volume] in Serum or Plasma C-reactive protein Lab Routine Polyarthralgia Expected: 05/12/2024 (Approximate), Expires: 05/12/2025 [facility] Comment on above: Expected: 05/12/2024 (Approximate), Expi res: 05/12/2025 Start: 05-12-2024 End: 05-12-2025 CBC W Auto Differential panel - Blood CBC and differential Lab Routine Polyarthralgia Expected: 05/12/2024 (Approximate), Expires: 05/12/2025 [facility] Work Phone: Comment on above: Expected: 05/12/2024 (Approximate), Expi res: 05/12/2025 Start: 05-12-2024 End: 05-12-2025 Erythrocyte sedimentation rate Sedimentation rate, automated Lab Routine Polyarthralgia Expected: 05/12/2024 (Approximate), Expires: 05/12/2025 [facility] Comment on above: Expected: 05/12/2024 (Approximate), Expi res: 05/12/2025 Start: 05-12-2024 End: 05-12-2025 HLA-B27 antigen HLA-B27 antigen Lab Routine Polyarthralgia Expected: 05/12/2024 (Approximate), Expires: 05/12/2025 [facility] Comment on above: Expected: 05/12/2024 (Approximate), Expi res: 05/12/2025 Start: 05-12-2024 End: 05-12-2025 LYME DISEASE ANTIBODY (IGG), IMMUNOBLOT LYME DISEASE ANTIBODY (IGG), IMMUNOBLOT Lab Routine Polyarthralgia Expected: 05/12/2024 (Approximate), Expires: 05/12/2025 [facility] Comment on above: Expected: 05/12/2024 (Approximate), Expi res: 05/12/2025 Start: 05-12-2024 End: 05-12-2025 MR Hip - left Arthrogram MR hip arthrogram left Imaging Routine Tear of left acetabular labrum, initial encounter Expected: 05/12/2024 (Approximate), Expires: 05/12/2025 [facility] Comment on above: Expected: 05/12/2024 (Approximate), Expi res: 05/12/2025 Start: 05-12-2024 End: 05-12-2025 Nuclear Ab [Titer] in Serum by Immunofluorescence AXEL Lab Routine Polyarthralgia Expected: 05/12/2024 (Approximate), Expires: 05/12/2025 [facility] Comment on above: Expected: 05/12/2024 (Approximate), Expi res: 05/12/2025 Start: 05-12-2024 End: 05-12-2025 Rheumatoid factor [Units/volume] in Serum or Plasma Rheumatoid factor Lab Routine Polyarthralgia Expected: 05/12/2024 (Approximate), Expires: 05/12/2025 [facility] Comment on above: Expected: 05/12/2024 (Approximate), Expi res: 05/12/2025 Start: 05-12-2024 End: 05-12-2025 SYSTEMIC LUPUS ERYTHEMATOSUS (SLE), DISEASE ACTIVITY PANEL SYSTEMIC LUPUS ERYTHEMATOSUS (SLE), DISEASE ACTIVITY PANEL Lab Routine Polyarthralgia Expected: 05/12/2024 (Approximate), Expires: 05/12/2025 [facility] Comment on above: Expected: 05/12/2024 (Approximate), Expi res: 05/12/2025 Start: 05-12-2024 End: 05-12-2025 Urate [Mass/volume] in Serum or Plasma Uric acid Lab Routine Polyarthralgia Expected: 05/12/2024 (Approximate), Expires: 05/12/2025 [facility] Comment on above: Expected: 05/12/2024 (Approximate), Expi res: 05/12/2025 Start: 05-12-2024 End: 05-12-2024 Patient encounter procedure 05/12/2024 11:15 AM EDT Office Visit [facility] [address] [place] [phone] Jr. Luca Red, DO [address] [facility] [address] [place] [address] Arrived [facility] Comment on above: Arrived Start: 03-23-2024 Influenza vaccination Influenza Vaccine (#1) [facility] Start: 03-23-2020 Influenza vaccination Flu vaccine (#1) [employer] Phone: Start: 1970 Screening for malignant neoplasm of colon [facility] Venous Blood Gas, POC Venous Blo od Gas, POC Point of Care Testing Routine 10/02/2020 8:17 PM EST [employer] Phone: Payers Date Payer Category Payer Medicaid [id number] 2024 Medicaid [id number] 1970 Unknown [id number] 1970 Unknown [id number] 1970 Unknown [id number] 2.16.84 [id number] 1970 Unknown [id number] 2.16.84 [id number] 1959 Self-pay 1959 Unknown [id number] 1. [id number] Unknown [id number] [id number] Unknown [id number] [id number] Social History Date Type Detail Facility Start: 10-02-2020 End: 05-12-2024 Tobacco smoking status [facility] Never smoker [employer] Phone: Start: 10-02-2020 End: 05-12-2024 Tobacco use and exposure Never used [employer] Phone: Start: 10-02-2020 Alcohol intake Current drinker of alcohol (finding) [employer] Phone: Start: 10-02-2020 Alcohol Comment intermittently social drinker [employer] Phone: Start: 1970 Sex Assigned At Not on file [employer] Phone: Exposure to SARS-CoV-2 (event) Not sure [employer] Phone: Start: 05-12-2024 Sex Assigned At [employer] Other Tobacco smoking status [facility] Tobacco smoking consumption unknown [facility] Start: 05-12-2024 Alcoholic beverage intake Ex-drinker (finding) [facility] Start: 05-12-2024 History of Social function [facility] Clinical Notes 10-30-2022 to 05-12-2024 Jr. Luca Red, DO - 05/12/2024 11:15 AM EDT Note Date & Type Note Facility 05-12-2024 History of Presen t illness Narrative Images from the original note were not included. HISTORY OF PRESENT ILLNESS: EST PT Caryn Oliver is an 53 y.o. @ male. NEW PT WITH LT HIP PAIN FOR YRS- SYMPTOMS STARTED AFTER WORKING ON [employer] YRS AGO- NO RECENT TX XRAY LT HIP TODAY EPIC 05/12/24 HX PHYSICAL THERAPY YRS AGO PAIN LATERAL HIP - DENIES GROIN PAIN - SOME PAIN DOWN TO KNEE- PT STATES HE SITS STYLE A LOT - CONTINUES HEP - DENIES N/T- NO PAIN MEDS ALLERGIES: No Known Allergies HOME MEDICATIONS: Current Outpatient Medications Medication Instructions methylPREDNISolone (Medrol Dospak) 4 MG tablets Follow schedule on package instructions PHYSICAL EXAM: Hip Musculoskeletal Exam Gait Gait is normal. Inspection Leg length disparity: no discrepancy Left Erythema: none Ecchymosis: none Edema: none Deformity: none Palpation Left Left hip palpation is normal. Increased warmth: none Tenderness: present (+pain noted globally with ROM) Range of Motion Left Left hip range of motion is within functional limits. Active ROM: normal and pain. Passive ROM: normal. Strength Left Left hip strength is normal. Extension: 5/5. Flexion: 5/5. Internal rotation: 5/5. External rotation: 5/5. Adduction: 5/5. Abduction: 5/5. Neurovascular Left Left hip neurovascular exam is normal. Pulses - PT: normal Posterior tibial: 2+ Special Tests Left Impingement test: positive Vitals: Body mass index is 22.71 kg/m . Tobacco Use: Low Risk (05/12/2024) Patient History Smoking Tobacco Use: Never Smokeless Tobacco Use: Never Passive Exposure: Not on file Alcohol Use: Not on file IMAGING: XR hip left 2 or 3 views Imaging Result: AP and lateral left hip showed femoral head to be well centered in the acetabulum without evidence of subluxation or dislocation. There was good preservation of the joint space. There was no gross evidence of degenerative changes. There was no acute bony process including but limited to fracture and/or dislocation. Impression: No acute bony process left hip Procedures Orders Placed This Encounter Procedures XR hip left 2 or 3 views Order Specific Question: Reason for exam: Answer: PAIN MR hip arthrogram left Standing Status: Future Standing Expiration Date: 05/12/2025 Scheduling Instructions: [facility] ; Please call patient to schedule, thank you Order Specific Question: Reason for exam: Answer: r/o labral tear CBC and differential Standing Status: Future Number of Occurrences: 1 Standing Expiration Date: 05/12/2025 Order Specific Question: Print requisition? Answer: No Sedimentation rate, automated Standing Status: Future Number of Occurrences: 1 Standing Expiration Date: 05/12/2025 Order Specific Question: Print requisition? Answer: No AXEL Standing Status: Future Number of Occurrences: 1 Standing Expiration Date: 05/12/2025 Order Specific Question: Print requisition? Answer: No Rheumatoid factor Standing Status: Future Number of Occurrences: 1 Standing Expiration Date: 05/12/2025 Order Specific Question: Print requisition? Answer: No LYME DISEASE ANTIBODY (IGG), IMMUNOBLOT Standing Status: Future Number of Occurrences: 1 Standing Expiration Date: 05/12/2025 Order Specific Question: Print requisition? Answer: No Uric acid Standing Status: Future Number of Occurrences: 1 Standing Expiration Date: 05/12/2025 Order Specific Question: Print requisition? Answer: No SYSTEMIC LUPUS ERYTHEMATOSUS (SLE), DISEASE ACTIVITY PANEL Standing Status: Future Number of Occurrences: 1 Standing Expiration Date: 05/12/2025 Order Specific Question: Print requisition? Answer: No HLA-B27 antigen Standing Status: Future Number of Occurrences: 1 Standing Expiration Date: 05/12/2025 Order Specific Question: Print requisition? Answer: No C-reactive protein Standing Status: Future Number of Occurrences: 1 Standing Expiration Date: 05/12/2025 Order Specific Question: Print requisition? Answer: No ASSESSMENT: ICD-10-CM 1. Left hip pain M25.552 XR hip left 2 or 3 views methylPREDNISolone (Medrol Dospak) 4 MG tablets 2. Polyarthralgia M25.50 CBC and differential Sedimentation rate, automated AXEL Rheumatoid factor LYME DISEASE ANTIBODY (IGG), IMMUNOBLOT Uric acid SYSTEMIC LUPUS ERYTHEMATOSUS (SLE), DISEASE ACTIVITY PANEL HLA-B27 antigen C-reactive protein CBC and differential Sedimentation rate, automated AXEL Rheumatoid factor LYME DISEASE ANTIBODY (IGG), IMMUNOBLOT Uric acid SYSTEMIC LUPUS ERYTHEMATOSUS (SLE), DISEASE ACTIVITY PANEL HLA-B27 antigen C-reactive protein 3. Tear of left acetabular labrum, initial encounter S73.192A MR hip arthrogram left PLAN: We have answered all the patients questions and explained the patients condition, decision making and plan including the risks and benefits associated with said plan in layman''s terms in a language the patient could understand easily. If patient''s symptoms significantly worsen and they cannot get a hold of us or their family physician, we have recommended that the patient proceed to the nearest emergency department (room). Dr. Red obtained history and examined the patient, I am acting as scribe for Dr. Red/corky, PLAN: We have discussed (L) hip rays with patient at bedside. After examination today we are recommending an arthritis panel (@[facility])cbc secondary to multiple joint pain ; patient admits to having already being dx to an autoimmune disorder. We are also recommending a MRI arthrogram of his left hip for further evaluation to r/o labral tear vs AVN. We are also recommending a MDP in attempt to decrease the inflammation ; with understanding unable to start until after completed labs. We have discussed avoiding motions including, but not limited to : no high impact. We have discussed his HEP and restrictions and will see him back in 3 weeks to discuss labs and MRI arthrogram results. Luca Red D.O. documented in this encounter [facility] 08-20-2023 Evaluation note Encounter Date Diagnosis Assessment Notes Jul, Anxiety, generalized (ICD-10 - F41.1) [facility] Other 12-27-2023 Evaluation note* Encounter Date Diagnosis Assessment Notes Treatment Notes Treatment Clinical Notes Jun, Anxiety, generalized (ICD-10 - F41.1) [facility] Other 11-28-2023 Evaluation note* Encounter Date Diagnosis Assessment Notes Treatment Notes Treatment Clinical Notes May, Anxiety, generalized (ICD-10 - F41.1) [facility] Other 10-27-2023 Evaluation note* Encounter Date Diagnosis Assessment Notes Treatment Notes Treatment Clinical Notes Apr, Anxiety, generalized (ICD-10 - F41.1) [facility] Other 08-28-2023 Evaluation note* Encounter Date Diagnosis Assessment Notes Treatment Notes Treatment Clinical Notes Feb, Anxiety, generalized (ICD-10 - F41.1) [facility] Other 06-19-2023 Evaluation note* Encounter Date Diagnosis Assessment Notes Treatment Notes Treatment Clinical Notes Dec, Anxiety, generalized (ICD-10 - F41.1) [facility] Other 05-12-2023 Evaluation note* Encounter Date Diagnosis Assessment Notes Treatment Notes Treatment Clinical Notes November, Anxiety, generalized (ICD-10 - F41.1) [facility] Other 04-10-2023 Evaluation note* Encounter Date Diagnosis Assessment Notes Treatment Notes Treatment Clinical Notes Oct, Anxiety, generalized (ICD-10 - F41.1) [facility] Other Evaluation noteNo InformationNort [place] Other Evaluation note* Diagnosis Left hip pain- Primary Pain in joint, pelvic region and thigh Polyarthralgia Pain in joint, multiple sites Tear of left acetabular labrum, initial encounter documented in this encounter [facility] - Reported* Type Description Date Medical History BMI 32.0-32.9,adult Medical History Anxiety, generalized Medical History Hair loss Medical History SERUM LIPIDS HIGH [facility] Other History general Narrative - Reported* Type Description Date Medical History BMI 32.0-32.9,adult Medical History Anxiety, generalized Medical History Hair loss Medical History SERUM LIPIDS HIGH Surgical History Problem Title : L wrist surgery , Problem Status : Active, [facility] Other Discharge Instructions * Instructions* Brynn Laird, - 10/03/2020 THANK YOU!!! From [facility] Emergency Department On behalf of the Emergency Department staff at [facility]'s Emergency Department, I would like to thank you for giving [facility] the opportunity to address your health care needs and concerns. We hope that during your visit, our service was delivered in a professional and caring manner. Please keep [facility] in mind as we walk with you down the path to your own personal wellness. Please expect an automated phone call from so we can ask a few questions about your health and progress. Based on your answers, a clinician may call you back to offer help and instructions. If you notice any concerning symptoms please return to the ER immediately. These can include but are not limited to: fevers, chills, shortness of breath, vomiting, weakness of the extremities, changes in your mental status, numbness, pale extremities, or chest pain. You were seen in the emergency department for priapism. 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 He was seen by urology and an aspiration and phenylephrine injection were performed. Please follow-up with urology on Sunday as indicated in these instructions. Wound care: See instructions below Diet: You may resume your normal diet Activity: resume activity as tolerated. Medications: Continue taking your home medications as previously directed. For pain You may take tylenol 1,000mg by mouth every 6 hours as needed for pain. Do not exceed 4,000mg per day. If you have liver disease don't take tylenol. You may also take ibuprofen 600mg every 6-8 hours as needed for pain. Do not exceed 2,400 mg per day. If you experience stomach pain or you have a history of kidney disease stop taking ibuprofen. You may alternate application of ice and heat 20 minutes at a time as desired. You should consider avoiding the use of trazodone as this medication is known to rarely cause priapism. Also consider avoiding the use of Viagra. Avoid cocaine use. Follow up: Please follow up with your primary care doctor within one week or as needed. If you do not have a PCP you may select a provider from the ones listed below. Please also follow-up with urology as indicated in these instructions. Priapism discharge instructions Patient ok to discharge home in good condition Patient should walk moderately at home Patient ok to shower Patient may resume diet as tolerated Please call attending physician or hospital felt cutting machine operator with questions Call or Present to ED if fever (> 101F), intractable nausea,vomiting, or pain. Please stop taking trazodone If you have a erection for greater than 4 hours, come to the emergency department After initial appointment, can follow-up with nearest urologist Patient should follow up with Urology, on Sunday, call to confirm appointment [facility] List Healthcare Providers Services Day of Week/ Hours [facility] [address] [facility] Pediatric Primary Care Adult Primary Care PROJECT DEVELOPMENT COORDINATOR//Specialty Clinics Sunday 8:00a 4:30p [address] Adult Medicine, Pediatrics, PROJECT DEVELOPMENT COORDINATOR Sunday 8:30a 4:30p [facility] Surgery [address] [facility] Sunday 8:30a 11:00a [facility] [address] [facility] Adult Internal Medicine ([facility]) PROJECT DEVELOPMENT COORDINATOR Clinic Pediatric Clinic Sunday, Sunday, , Sunday 8:00a 4:30p Sunday 1:00p 4:30p Sunday, Sunday, 8:00a 5:00p; Sunday 8:00a 12:30p Sunday 1p 4p Sunday, Sunday, , Sunday 8:30a 4:15p Sunday 12:30p 4:15p [address] Pediatric Primary Care Adult Primary Care OB/ Sunday, Sunday 8a 12p 8a 4:45p [facility] [address] [place] [address] # Pre & Post Adoption Counseling Support / nutrition Care Reward Incentive Program [facility] Sun, , Sun, Sun 10:00a 4:30p Thur 10:00a 7:30p [address] [place] Location Sunday - Sunday 10a 4:30p [facility] Clinics PROJECT DEVELOPMENT COORDINATOR [address] Adult Internal Medicine [address] [facility] Pediatrics [address] [facility] [address] Neuro / Headache [address] [facility] Sunday 8:30a 5p [facility] [address] [facility] Sun, , , Sun 9:00a 4:30p Wed 1:00p 4:30p [facility] [address] [place] [address] [address] Family Practice Sunday 8:30a 5:00p [facility] [address] [facility] [address] Burn/Plastic, ENT, GI, Orthopedics, Surgical / Trauma, Urology, Vascular Sunday 8:00 4:30p Call for an appointment [facility] [address] [facility] Adult Medicine, Eye Clinic, Dental Patient must be certified homeless Under age 18 not accepted Sunday 8:00 4:30p [facility] [address] [facility] Family Practice OB Sunday, Sunday, Sunday, Sunday 9a 5p 9a 6p Sunday (OB only) [facility] [address] [facility] OB/ Sunday 11a 7p , Sun, 9a 5p Sunday 8a 4p 1st Sunday 9a 1p Podiatry Clinic [address] [facility] [address] Sunday 8:00 4:[address] Free nurse visits [place] programs Counseling Class Call or walk in [facility] [address] [place] [facility] Clinics 8a 5:30p [facility] Family Medicine [facility] [address] [facility], [address] Family Practice Sunday 8a 4:30p [facility] [address] [place] [address] [id number] [address] [place], [place] [id number] Sunday 8a 4:30p Sunday 8a 4:30p 8a 8p Outpatient Clinics [facility] [place] [facility] [address] [facility] Sunday 9a 5p Diabetic Education Services Call for an appointment [facility] Heart Failure Clinic [address] [facility] Sunday 8:30a 4p Dental Services [facility] [address] Must have source of income and must bring (2) recent check stubs to appointment By appointment only [facility] [address] Patient must be homeless, call for eligibility guidelines. Under age 18 NOT accepted Days and hours vary (Doors open at 8:30a day of week varies) Call for an appointment Miscellaneous Information [facility] First Call for Help [phone] Call for an appointment H.E.L.P (Hospital Eligibility Link Program) toll free For financial assistance documented in this encounter History of Present Illness * Walter Hilario MD - 10/03/2020 12:40 PM EDT [facility] CDU / OBSERVATION ENCOUNTER ATTENDING NOTE I performed a history and physical examination of the patient and discussed management with the resident or midlevel provider. I reviewed the resident or midlevel provider's note and agree with the documented findings and plan of care. Any areas of disagreement are noted on the chart. I was personally present for the yip portions of any procedures. I have documented in the chart those procedures where I was not present during the yip portions. I have reviewed the nurses notes. I agree with the chief complaint, past medical history, past surgical history, allergies, medications, social and family history as documented unless otherwise noted below. The Family history, social history, and ROS are effectively unchanged since admission unless noted elsewhere in the chart. 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 Patient had trazodone in an effort to sleep. Patient was seen by urology and treated. Patient currently still with mild tumescence with Coban on. Will reassess patient after Coban has been removed. Walter Hilario MD Attending Emergency Physician documented in this encounter Assessments Diagnosis Priapism- Primary Advance Directives No Advanced Directives Records FoundLatest Code Status on File Code Status Date Activated Date Inactivated Comments Full Code 10/02/2020 9:53 PM Summary Purpose Family History No Family History Records FoundNo Family History Records FoundNo Family History Records FoundNo Family History Records Found Additional Source Comments (unrecognized sect ion and content) No Status Records FoundNo Status Records FoundNo Status Records FoundNo Status Records Found INFORMATION SOURCE (unrecogn ized section and content) DATE CREATED AUTHOR 10/10/2020 [facility] DATE CREATED AUTHOR AUTHOR'S ORGANIZ ATION 08/05/2022 [facility] DATE CREATED AUTHOR AUTHOR'S ORGANIZ ATION 05/17/2024 [facility] EPIC DATE CREATED AUTHOR AUTHOR'S ORGANIZ ATION 06/19/2024 [facility] ys[facility] Group REASON FOR VISIT (unrecogniz ed section and content) Reason Comments Pain Refill Care Teams (unrecognized sec tion and content) Power System Operator Relationship Specialty Start Date End Date Unallocated, Sowmya Tucker MD [address] [place] [address] PCP - General Family Medicine 05/12/24 Power System Operator Relationship Specialty Start Date End Date Unallocated, Sowmya Tucker MD [address] [place] [address] PCP - General Family Medicine 05/12/24 Power System Operator Relationship Specialty Start Date End Date Unallocated, Sowmya Tucker MD [address] [place] [address] PCP - General Family Medicine 05/12/24 FOR RECORDS PERTAINING TO PATIENTS WHO ARE OR HAVE BEEN ENROLLED IN A CHEMICAL DEPENDENCY/SUBSTANCEABUSE PROGRAM, SOME INFORMATION MAY BE OMITTED. This clinical summary was aggregated from multiple sources. Caution should be exercised in using it in the provision of clinical care. This summary normalizes information from multiple sources, and as a consequence, information in this document may materially change the coding, format and clinical context of patient data. In addition, data may be omitted in some cases. CLINICAL DECISIONS SHOULD BE BASED ON THE PRIMARY CLINICAL RECORDS. [facility] [employer] [facility]. provides no warranty or guarantee of the accuracy or completeness of information in this document.
[2024-08-07] MEDS: LIDOCAINE HCL 15 ML, SODIUM BICARBONATE 2 MEQ INJ (08:20)
--- NOTE | 2024-08-07 09:04 | SUR.PREOP ---
07/29/24 Per Josh pt instructed on procedure, date, time, and prep.
== END 2024-08-07 08:45 | disposition home or self-care (01) ==
LOC: MRI 07:33
PROVIDERS: Radiology Diagnostic Radiology; Visit Provider Orthopaedic Surgery
DX: S73.192A Other sprain of left hip, initial encounter (principal); M25.552 Pain in left hip
CPT/HCPCS: 27093; 73722; 77002; A9575; Q9966

== ENCOUNTER 2025-03-06 13:34 | Emergency (ER) | payer OTHER, SELFPAY ==
--- OUTSIDE RECORDS SUMMARY | 2025-01-27 07:05 | XMS_ITS ---
[facility] [address] [place] [address] Care Team Providers Care Line Supply Name Role Phone Ruiz Tate Primary Care Provider [phone] Manpreet Trinidad Unavailable [phone] REASON FOR VISIT FILLING Encounters Encounter Location Date Provider Diagnosis [address] [place] [address] 2024 Manpreet Trinidad Plan Of Treatment Next Appt Details Provider Name:Geri Ingram , 05/13/2025 01:00:00 PM, [address], [place], [address], Progress Notes * TOBY SIMON CDOB:1970 (54 yo M)Acc No.[id number]:01/27/2025 Patient: TOBY SALDIVAR Provider: Khadar Trinidad DDS :1970 A ge:54 Y S ex:Male Date:01/27/2025 Address:[address] [place] [id number] Pcp:Ruiz Tate Subjective: * Chief Complaints: * 1 . FILLING. * Medical History: Objective: * Vitals: Assessment: Plan: * Treatment: * Images: * Electronic signature of Dr. Manpreet Trinidad , DMD on 03/06/2025 at 01:42 PM EDT Sign off status: Pending * Provider: Khadar Trinidad DDS Date: 0 01/27/2025 Generated for Parminder ho/Yoel/Yudismitting on: 0 03/06/2025 01:42 PM EDT
[2025-03-06] VITALS (13 sets, daily range): BP systolic 132; BP diastolic 89–99; PULSE 78–101; TEMP 36.7; O2SAT 97–98; BMI 26.6
--- OUTSIDE RECORDS SUMMARY | 2025-03-06 13:42 | XMS_ITS | Encounter Summary ---
Author Organization [facility] Address [address] [place] [address] Care Team Providers Care Shipping Packer Name Role Phone Unallocated, Noms Provider Primary Care Provi anand Encounter Details Date Type Department Care Team (Late st Contact Info) Description 08/07/2024 Clinisync Result Encounter [facility] External Department Unsolicited Jr. Berlin Zamora, DO [address] [place] [address] Social History Tobacco Use Types Packs/Day Years Used Date Smoking Tobacco: Never Smokeless Tobacco: Never Alcohol Use Standard Drinks/Week Comments Not Currently 0 (1 standard drink = 0.6 oz pur e alcohol) Sex and Gender Information Value Date Recorded Sex Assigned at Not on file Legal Sex Male 2:11 PM EDT Gender Identity Not on file Sexual Orientation Not on file documented as of this encounter Plan of Treatment Not on file documented as of this encounter Procedures Procedure Name Priority Date/Time Associated Diagnosis Comments FL ARTHROGRAM HIP LT 08/07/2024 8:54 AM EST documented in this encounter Results * FL ARTHROGRAM HIP LT (08/07/2024 8:54 AM EST) Anatomical Region Laterality Modality Radiographic Gladys ging 08/07/2024 8:54 AM EST Narrative 08/07/2024 8:56 AM EST [address] [address] Fluoroscopy Report Signed Patient: CARYN ANTUNEZ MR#: [id number] : 1970 Acct:[id number] Age/Sex: 53 / M ADM Date: 08/07/24 Loc: MRI Attending Dr: Berlin Zamora D.O. Ordering Physician: Berlin Zamora D.O. Date of Service: 08/07/24 Procedure(s): FL arthrogram hip Accession Number(s): [id number] cc: Physician,Non-Staff Carrie; Berlin Zamora D.O. [address] [address] Patient Name: CARYN ANTUNEZ MRN: [id number] date: 1970 Sex: M Assigned Patient Location: MRI Current Patient Location: MRI Accession/Order Number: [id number] Exam Date: 08/07/2024 08:00 Report Date: 08/07/2024 08:54 At the request of: BERLIN ZAMORA Procedure: FL arthrogram hip EXAMINATION: FL arthrogram hip, FL guided needle placement HISTORY: Rule out labral tear COMPARISON: No relevant comparison available. TECHNIQUE: An arthrogram was performed under fluoroscopic guidance using non-ionic contrast material in the usual sterile manner after obtaining informed consent. Standard level fluoroscopic mode of operation utilized. 35 seconds of fluoroscopy. 1.97 mCi FINDINGS: JOINT: Left hip NEEDLE: 25 gauge, 3.5 spinal needle. MEDICATION: 2cc buffered 1% lidocaine for subcutaneous anesthesia 5cc Omnipaque-240 iodinated contrast to visualize the joint space 0.2 mL Dotarem, 5 mL 1% lidocaine. TECHNIQUE: Anterior approach with prior localization of the femoral artery. A single stick was successful in gaining access to the joint space. CLINICAL: No pain before or after the procedure COMPLICATIONS: None. BONES: Normal. No erosion, osteophyte, fracture, or bony lesion. CARTILAGE: Normal. No visible erosion or interruption. CAPSULE: Normal. No visible capsular laxity or labrum tear. EDGAR-ARTICULAR: Normal. No visible edgar-articular soft tissue abnormality. LOOSE BODIES: None. OTHER: Negative. PLEASE ALSO SEE THE SEPARATE MRI ARTHROGRAM PROCEDURE REPORT. FL/FL arthrogram hip IMPRESSION: Technically successful left hip arthrogram Electronically authenticated by: WALTER HOFF Date: 08/07/2024 08:54 Dictated By: Walter Hoff M.D. Signed By: 08/07/24 0856 DD/ 0854 TD/TT: Veneer Lathe Operator: Procedure Note Radiology, Radiologist, MD - 08/07/[address] [address] Fluoroscopy Report Signed Patient: CARYN ANTUNEZ CMR#: [id number] : 1970Acct:[id number] Age/Sex: 53 / MADM Date: 08/07/24 Loc: MRI Attending Dr: Berlin Zamora D.O. Ordering Physician: Berlin Zamora D.O. Date of Service: 08/07/24 Procedure(s): FL arthrogram hip Accession Number(s): [id number] cc: Physician,Non-Staff Carrie; Berlin Zamora D.O. The [address] [address] Patient Name: CARYN ANTUNEZ MRN: [id number] date: 1970 Sex: M Assigned Patient Location: MRI Current Patient Location: MRI Accession/Order Number: [id number] Exam Date: 08/07/2024 08:00 Report Date: 08/07/2024 08:54 At the request of: BERLIN ZAMORA Procedure: FL arthrogram hip EXAMINATION: FL arthrogram hip, FL guided needle placement HISTORY: Rule out labral tear COMPARISON: No relevant comparison available. TECHNIQUE: An arthrogram was performed under fluoroscopic guidance using non-ionic contrast material in the usual sterile manner after obtaining informed consent. Standard level fluoroscopic mode of operation utilized.35 seconds of fluoroscopy. 1.97 mCi FINDINGS: JOINT: Left hip NEEDLE: 25 gauge, 3.5 spinal needle. MEDICATION: 2cc buffered 1% lidocaine for subcutaneous anesthesia 5cc Omnipaque-240 iodinated contrast to visualize the joint space 0.2 mL Dotarem, 5 mL 1% lidocaine. TECHNIQUE: Anterior approach with prior localization of the femoralartery. A single stick was successful in gaining access to the joint space. CLINICAL: No pain before or after the procedure COMPLICATIONS: None. BONES: Normal. No erosion, osteophyte, fracture, or bony lesion. CARTILAGE: Normal. No visible erosion or interruption. CAPSULE: Normal. No visible capsular laxity or labrum tear. EDGAR-ARTICULAR: Normal. No visible edgar-articular soft tissue abnormality. LOOSE BODIES: None. OTHER: Negative. PLEASE ALSO SEE THE SEPARATE MRI ARTHROGRAM PROCEDURE REPORT. FL/FL arthrogram hip IMPRESSION: Technically successful left hip arthrogram Electronically authenticated by: WALTER HOFF Date: 08/07/2024 08:54 Dictated By: Walter Hoff M.D. Signed By:08/07/24 0856 DD/ TD/TT: Veneer Lathe Operator: [facility] Hospital[facility]itesh Dos Santos Stepanic DO IMG XR PROCEDURES Final Result documented in this encounter Visit Diagnoses Not on filedocumented in this encounter Care Teams Shipping Packer Relationship Specialty Start Date End Date Unallocated, Noms Provider, [address] [place] [address] PCP - General Family Medicine 05/12/24 documented as of this encounter
--- OUTSIDE RECORDS SUMMARY | 2025-03-06 13:42 | XMS_ITS | Encounter Summary ---
Author Organization [facility] Address [address] [place] [address] Care Team Providers Care Ham Pumper Name Role Phone Unallocated, Noms Provider Primary Care Provi anand Encounter Details Date Type Department Care Team (Late st Contact Info) Description 08/07/2024 Clinisync Result Encounter [facility] External Department Unsolicited Jr. Berlin Zamora, DO [address] [place] [address] Social History Tobacco Use Types Packs/Day Years [...] Name Priority Date/Time Associated Diagnosis Comments FL GUIDED NEEDLE PLACEMENT 08/07/2024 8:54 AM EST documented in this encounter Results * FL GUIDED NEEDLE PLACEMENT (08/07/2024 8:54 AM EST) Anatomical Region Laterality Modality Radiographic Gladys ging 08/07/2024 8:54 AM EST Narrative 08/07/2024 8:56 AM EST The [address] [address] Fluoroscopy Report Signed Patient: CARYN ANTUNEZ MR#: [id number] : 1970 Acct:[id number] Age/Sex: 53 / M ADM Date: 08/07/24 Loc: MRI Attending Dr: Berlin Zamora D.O. Ordering Physician: Berlin Zamora D.O. Date of Service: 08/07/24 Procedure(s): FL guided needle placement Accession Number(s): [id number] cc: Physician,Non-Staff Carrie; Berlin Zamora D.O. [place] [id number] Patient Name: CARYN ANTUNEZ MRN: [facility]:[id number] date: 1970 Sex: M Assigned Patient Location: MRI Current Patient Location: MRI Accession/Order Number: [id number] Exam Date: 08/07/2024 08:00 Report Date: 08/07/2024 08:54 At the request of: BERLIN ZAMORA Procedure: FL guided needle placement EXAMINATION: FL arthrogram hip, FL guided needle [...] THE SEPARATE MRI ARTHROGRAM PROCEDURE REPORT. FL/FL guided needle placement IMPRESSION: Technically successful left hip arthrogram Electronically authenticated by: WALTER HOFF Date: 08/07/2024 08:54 Dictated By: Walter oHff M.D. Signed By: 08/07/24 0856 DD/ TD/TT: Dry Chain Operator: Procedure Note Radiology, Radiologist, - 08/07/[address] [address] Fluoroscopy Report Signed Patient: CARYN ANTUNEZ CMR#: [id number] : 1970Acct:[id number] Age/Sex: 53 / MADM Date: 08/07/24 Loc: MRI Attending Dr: Berlin Zamora D.O. Ordering Physician: Berlin Zamora D.O. Date of Service: 08/07/24 Procedure(s): FL guided needle placement Accession Number(s): [id number] cc: Physician,Non-Staff Carrie; Berlin Zamora D.O. The [address] [id number] Patient Name: CARYN ANTUNEZ MRN: [id number] date: 1970 Sex: M Assigned Patient Location: MRI Current Patient Location: MRI Accession/Order Number: [id number] Exam Date: 08/07/2024 08:00 Report Date: 08/07/2024 08:54 At the request of: BERLIN ZAMORA Procedure: FL guided needle placement EXAMINATION: FL arthrogram hip, FL guided needle [...] THE SEPARATE MRI ARTHROGRAM PROCEDURE REPORT. FL/FL guided needle placement IMPRESSION: Technically successful left hip arthrogram Electronically authenticated by: WALTER HOFF Date: 08/07/2024 08:54 Dictated By: Walter Hoff M.D. Signed By:08/07/2456 DD/ TD/TT: Dry Chain Operator: Jr. Berlin Dos Santos Stepanic DO IMG XR PROCEDURES Final Result documented in this encounter Visit Diagnoses Not on filedocumented in this encounter Care Teams Ham Pumper Relationship Specialty Start Date End Date Unallocated, Noms Provider, [address] [place] [address] PCP - General Family Medicine 05/12/24 documented as of this encounter
--- OUTSIDE RECORDS SUMMARY | 2025-03-06 13:42 | XMS_ITS | Encounter Summary ---
Author Organization [facility] Address [address] [place] [address] Care Team Providers Care Bottle Washer Name Role Phone Unallocated, Noms Provider Primary Care Provi anand Encounter Details Date Type Department Care Team (Late st Contact Info) Description 08/08/2024 Clinisync Result Encounter [facility] External Department Unsolicited Jr. Berlin Zamora, DO [address] [place] [address] Social History Tobacco Use Types Packs/Day Years [...] Procedure Name Priority Date/Time Associated Diagnosis Comments MR HIP LEFT W IV CONTRAST 08/08/2024 7:36 AM EST documented in this encounter Results * MR hip left w IV contrast (08/08/2024 7:36 AM EST) Anatomical Region Laterality Modality Lower Extremities, Hip Left Magnetic Resonance 08/08/2024 7:36 AM EST Narrative 08/08/2024 7:39 AM EST [address] [address] Magnetic Resonance Report Signed Patient: CARYN ANTUNEZ MR#: [id number] : 1970 Acct:[id number] Age/Sex: 53 / M ADM Date: 08/07/24 Loc: MRI Attending Dr: Berlin Zamora D.O. Ordering Physician: Berlin Zamora D.O. Date of Service: 08/07/24 Procedure(s): MR hip LT w con Accession Number(s): [id number] cc: Physician,Non-Staff Carrie; Berlin Zamora D.O. [place] [id number] Patient Name: CARYN ANTUNEZ MRN: [facility]:[id number] date: 1970 Sex: M Assigned Patient Location: MRI Current Patient Location: MRI Accession/Order Number: [id number] Exam Date: 08/07/2024 08:45 Report Date: 08/08/2024 07:36 At the request of: BERLIN ZAMORA Procedure: MR hip LT w con HISTORY: Chronic left hip pain for multiple years. Evaluate for labral tear. MRI left hip 08/07/2024. COMPARISON: CT scan abdomen and pelvis 10/03/2023. TECHNIQUE: Multiplanar, multisequence MRI images of the pelvis and left hip were obtained following the fluoroscopic guided administration of dilute gadolinium into the left hip joint. FINDINGS: There is no evidence of avascular necrosis or fracture of the left hip. There is linear extension of contrast partially between the superolateral aspect of the labrum and the adjacent acetabulum. There is also mild thinning of the adjacent superolateral aspect of the acetabular cartilage in this region. The remainder of the labrum appears intact. There is a small amount of soft tissue edema along the lateral aspect of the left greater trochanter. However, no significant gluteal tendinopathy is seen. MR/MR hip LT w con IMPRESSION: 1. 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 2. Possible mild left greater trochanteric bursitis. Electronically authenticated by: NOEL FUENTES Date: 08/08/2024 07:36 Dictated By: Noel Fuentes M.D. Signed By: 08/08/24 0739 DD/ 0736 TD/TT: Administrative Accountant: Procedure Note Radiology, Radiologist, MD - 08/08/2024 The [place] [id number] Magnetic Resonance Report Signed Patient: CARYN ANTUNEZ CMR#: [id number] : 1970Acct:[id number] Age/Sex: 53 / MADM Date: 08/07/24 Loc: MRI Attending Dr: Berlin Zamora D.O. Ordering Physician: Berlin Zamora D.O. Date of Service: 08/07/24 Procedure(s): MR hip LT w con Accession Number(s): [id number] cc: Physician,Non-Staff M.Mary; Berlin Zamora D.O. The [place] [id number] Patient Name: CARYN ANTUNEZ MRN: [id number] date: 1970 Sex: M Assigned Patient Location: MRI Current Patient Location: MRI Accession/Order Number: [id number] Exam Date: 08/07/2024 08:45 Report Date: 08/08/2024 07:36 At the request of: BERLIN ZAMORA Procedure: MR hip LT w con HISTORY: Chronic left hip pain for multiple years. Evaluate for labraltear. MRI left hip 08/07/2024. COMPARISON: CT scan abdomen and pelvis 10/03/2023. TECHNIQUE: Multiplanar, multisequence MRI images of the pelvis and lefthip were obtained following the fluoroscopic guided administration of dilute gadolinium into the left hip joint. FINDINGS: There is no evidence of avascular necrosis or fracture of theleft hip. There is linear extension of contrast partially between thesuperolateral aspect of the labrum and the adjacent acetabulum. There is also mildthinning of the adjacent superolateral aspect of the acetabular cartilage in this region. The remainder of the labrum appears intact. There is a smallamount of soft tissue edema along the lateral aspect of the left greater trochanter. However, no significant gluteal tendinopathy is seen. MR/MR hip LT w con IMPRESSION: 1. 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 2. Possible mild left greater trochanteric bursitis. Electronically authenticated by: NOEL FUENTES Date: 08/08/2024 07:36 Dictated By: Noel Fuentes M.D. Signed By:08/08/2439 DD/ TD/TT: Administrative Accountant: Jr. Berlin Zamora DO IMG MRI PROCEDURES Helene l Result documented in this encounter Visit Diagnoses Not on filedocumented in this encounter Care Teams Bottle Washer Relationship Specialty Start Date End Date Unallocated, Noms Provider, [address] [place] [address] PCP - General Family Medicine 05/12/24 documented as of this encounter
--- OUTSIDE RECORDS SUMMARY | 2025-03-06 13:43 | XMS_ITS | Encounter Summary ---
Author Organization [employer] [facility] Address [id number] [address] [place] [address] Care Team Providers Care Clipper And Turner Name Role Phone No Pcp, No Pcp Primary Care Provider Unavailabl e Encounter Details Date Type Department Care Team (Late st Contact Info) Description 10/18/2021 Telephone [facility]-Tra[facility] [address] [place] [id number] Katherine Brice CMA Social History Tobacco Use Types Packs/Day Years Used Date Smoking Tobacco: Never Smokeless Tobacco: Never Alcohol Use Standard Drinks/Week Comments Yes 0 (1 standard drink = 0.6 oz pure alcohol) Pt states occasionally on weekends Sex and Gender Information Value Date Recorded Sex Assigned at Not on file Legal Sex Male 11:45 PM EDT Gender Identity Not on file Sexual Orientation Not on file COVID-19 Exposure Response Date Recorded In the last 10 days, have yo u been in contact with someone who was confirmed or suspected to have Coronavirus/COVID-19? No / Unsure 10/12/2021 11:56 PM EDT documented as of this encounter Miscellaneous Notes * Telephone Encounter - Katherine Brice CMA - 10/18/2021 11:02 AM EDT Confirming appt on 10/20/2021 documented in this encounter Plan of Treatment Not on file documented as of this encounter Goals Goal Patient Goal Type Associated Problems Recent Progress Patient-Stated? Author safe transiton to home with his mom in [place]/self-care General Yes Blanca Cordero LSW Note: Evaluation of progress towards goal:Safe transition to home with mom/self-care. - ALIE Lambert 10/13/21 11:31 AM documented as of this encounter Visit Diagnoses Not on filedocumented in this encounter Care Teams Clipper And Turner Relationship Specialty Start Date End Date No Pcp, [place] [address] PCP - General Family Medicine 10/13/21 documented as of this encounter
--- OUTSIDE RECORDS SUMMARY | 2025-03-06 13:43 | XMS_ITS | Patient Health Record ---
[facility] [address] [address] Care Team Providers Care Diesel Motor Mechanic Name Role Phone Ruiz Tate Primary Care Provider [phone] Dr. Manpreet Trinidad [facility] [phone] Allergies No Known Allergies Reason For Referral No Information Medications Medication SIG (Take, Route, Frequency, Duration) Notes Start Date End Date Status Finasteride 5 MG TAKE 1 TABLET BY KATHY TH ONCE DAILY Oral; Duration: 90 Days Active busPIRone HCl 10 MG TAKE 1 TABLET BY KATHY TH DAILY NEEDED FOR ANXIETY Oral; Duration: 30 Days Not-Taki ng Lurasidone HCl 20 MG 1 tablet in the zuhair nikhil with food Orally Once a day; Duration: 30 day(s) 11/28/2023 Not-William ing ALPRAZolam 1 MG TAKE 1 TABLET BY KATHY TH TWICE DAILY FOR 15 DAYS Oral; Duration: 15 Days Not-Taki ng ALPRAZolam 1 MG 1 tablet Orally three times a day; Duration: 30 days As needed 02/14/2024 Active Rexulti 1 MG 1 tablet Orally Once a day; Duration: 30 day(s) 12/26/2023 Not-Taking Problems Problem Type SNOMED Code ICD Code Onset Dates Problem Status W/U Status Risk Notes Problem Panic disorder (147171584) Panic Disorder (F41.0) Active confirmed Problem Generalized anxiety disorder (79467415) Anxiety, generalized (F41.1) Active confirmed Encounters Encounter Location Date Provider Diagnosis [facility] [address] [place] [address] 04/16/2024 Ruiz Tate [facility] [address] [place] [address] 10/24/2024 Manpreet Trinidad Encounter for dental examination and cleaning with abnormal findings Z01.21 ; Other dental procedure status Z98.818 ; Disturbances in tooth eruption K00.6 ; Periodontal disease, unspecified K05.6 and Dental caries on pit and fissure surface penetrating into dentin K02.52 [facility] [address] [place] [address] 01/29/2025 Manpreet Trinidad Dental caries on pit and fissure surface penetrating into dentin K02.52 Assessments Encounter Date Diagnosis (ICD Code) Assessment Notes Treatment Notes Treatment Clinical Notes Section Notes 10/24/2024 Encounter for dental examination and cleaning with abnormal findings (ICD-10 - Z01.21) 01/29/2025 Dental caries on pit and fissure surface penetrating into dentin (ICD-10 - K02.52) 10/24/2024 Other dental procedure status (ICD-10 - Z98.818) 10/24/2024 Disturbances in tooth eruption (ICD-10 - K00.6) 10/24/2024 Periodontal disease, unspecified (ICD-10 - K05.6) 10/24/2024 Dental caries on pit and fissure surface penetrating into dentin (ICD-10 - K02.52) Plan Of Treatment Next Appt Details Provider Name:Geri Ingram , 05/13/2025 01:00:00 PM, [address], [place], [address], Insurance Providers Payer Name Payer Address Payer Phone Subscriber Number Group Number Insured Name Patient Relationship to Insured Coverage Start Date Coverage End Date Dental [employer] [address] [facility] [place] [address] [id number] TOBY SIMON Self - patient is the insured 5 Dental [employer] [facility] P[employer]es [address] [place] [phone] [id number] TOBY SIMON Self - patient is the insured 5 Dental [employer] [facility] Medicaid [address] [place] [address] [id number] TOBY SIMON Self - patient is the insured 4 5 Dental Wrap [facility] [address] [place] [address] [id number] TOBY SIMON Self - patient is the insured 4 5 Medical (General) History Medical History History ICD Code agoraphobia
--- OUTSIDE RECORDS SUMMARY | 2025-03-06 13:43 | XMS_ITS | Clinical Summary ---
Author Organization [facility] Address [address] [place] [address] Care Team Providers Care Sports Information Director Name Role Phone Unallocated, Sowmya Provider Primary Care Provi anand Allergies No known active allergies Medications venlafaxine XR (Effexor XR) 150 MG 24 hr capsule Take 150 mg by mouth Daily 08/05/2024 Active tretinoin (Retin-A) 0.05 % cream APPLY TO THE FACE EVERY OTHER DAY then increase to DAILY NEEDED 10/01/2024 Active sertraline (Zoloft) 100 MG tablet Take 200 mg by mouth Daily 11/15/2024 Active propranolol (Inderal) 10 MG tablet TAKE 1/2 (ONE-HALF) OF A TABLET BY MOUTH TWICE DAILY 11/13/2024 Active Lybalvi 20-10 MG per tablet Take 1 tablet by mouth at bedtime 10/31/2024 Active OLANZapine (ZyPREXA) 15 MG tablet Take 1 tablet by mouth at bedtime 10/16/2024 Active ketoconazole (NIZOral) 2 % shampoo use on scalp EVERY DAY 09/17/2024 Active finasteride (Proscar) 5 MG tablet Take 5 mg by mouth Daily 08/19/2024 Active chlorhexidine (Peridex) 0.12 % solution use 15ml BY MOUTH TWICE DAILY for 20 days 10/24/2024 Active buPROPion SR (Wellbutrin SR) 100 MG 12 hr tablet Take 100 mg by mouth in the morning. 08/05/2024 Active benztropine (Cogentin) 0.5 MG tablet Take 0.5 mg by mouth in the morning and 0.5 mg before bedtime. 11/13/2024 Active pimecrolimus (Elidel) 1 % cream APPLY a thin layer TO THE AFFECTED AREA(S) TO THE FACE DAILY NEEDED for flares 12/09/2024 Active minoxidil (Loniten) 2.5 MG tablet TAKE 1/2 (ONE-HALF) OF A TABLET BY MOUTH DAILY 12/09/2024 Active busPIRone (Buspar) 5 MG tablet Take 5 mg by mouth in the morning and 5 mg before bedtime. 12/15/2024 Active Active Problems No known active problems Encounters Date Type Department Care Team Description 01/07/2025 8:40 AM EDT Ancillary Procedure [facility] [address] [place] [phone] 01/07/2025 8:15 AM EDT Office Visit [facility] [address] [place] [phone] Real Pappas PA Trochanteric bursitis of right hip (Primary Dx); Right hip pain 01/07/2025 Bamboo flowsheet [facility] [address] [facility] [place] [phone] Real Pappas PA 01/07/2025 Travel 12/24/2024 Telephone [facility] [address] [facility] [address] [place] [address] Jr. [place] Red, 12/19/2024 11:15 AM EDT Office Visit [facility] [address] [facility] [place] [address] Jr. [place] Red, Trochanteric bursitis of left hip (Primary Dx); Left hip pain 12/19/2024 Bamboo flowsheet [facility] [address] [facility] [address] [place] [address] Jr. [place] Red DO 12/19/2024 Travel from Last 3 Months Family History Relation Name Status Comments Father Alive Mother Alive Social History Tobacco Use Types Packs/Day Years Used Date Smoking Tobacco: Never Smokeless Tobacco: Never Tobacco Cessation:Counseling Given: Not Answered Alcohol Use Standard Drinks/Week Comments Not Currently 0 (1 standard drink = 0.6 oz pur e alcohol) Sex and Gender Information Value Date Recorded Sex Assigned at Not on file Legal Sex Male 2:11 PM EDT Gender Identity Not on file Sexual Orientation Not on file Last Filed Vital Signs Vital Sign Reading Time Taken Comments Blood Pressure - - Pulse - - Temperature - - Respiratory Rate - - Oxygen Saturation - - Inhaled Oxygen Concentration - - Weight 77.1 kg (170 lb) 01/07/2025 8:26 AM EDT Height 170.2 cm (5' 7 ) 01/07/2025 8:26 AM EDT Body Mass Index 26.63 01/07/2025 8:26 AM EDT Plan of Treatment Health Maintenance Due Date Last Done Comments CT Colonography 1970 Colonoscopy 1970 Colorectal Cancer Screening 1970 FIT-DNA 1970 FIT 1970 FOBT 1970 Sigmoidoscopy 1970 Influenza Vaccine (#1) 2025 Procedures Procedure Name Priority Date/Time Associated Diagnosis Comments [place] ARTHROCENTESIS ASPIR&/INJ MAJOR JT/BURSA W/O US Routine 01/07/2025 9:13 AM EDT Trochanteric bursitis of right hip XR HIP 2 OR 3 VW RIGHT Routine 8:35 AM EDT Right hip pain [place] ARTHROCENTESIS ASPIR&/INJ MAJOR JT/BURSA W/O US Routine 12/19/2024 11:40 AM EDT Left hip pain from Last 3 Months Results * IL ARTHROCENTESIS ASPIR&/INJ MAJOR JT/BURSA W/O US (01/07/2025 9:13 AM EDT) Narrative Real Pappas PA - 01/07/2025 9:13 AM EDT MECHE Arciniega 01/07/2025 9:19 AM L Inj/Asp: R greater trochanteric bursa on 01/07/2025 9:13 AM Indications: pain Details: 21 G needle, lateral approach Medications: 40 mg methylPREDNISolone acetate 40 MG/ML; 2 mL bupivacaine PF 0.5 % Outcome: tolerated well, no immediate complications UTILIZING ASEPTIC TECHNIQUE PT GIVEN INJECTION IN RIGHT HIP BURSA NEUROVASC INTACT S/P INJ, TOLERATED WELL Procedure, treatment alternatives, risks and benefits explained, specific risks discussed. Consent was given by the patient. Real MCGREGOR IN CLINIC/BEDSIDE ORDERABLES Final Result * XR hip right 2 or 3 views (01/07/2025 8:35 AM EDT) Anatomical Region Laterality Modality Lower Extremities, Hip Right Radiograp hic Imaging Narrative 01/07/2025 9:14 AM EDT Imaging Result: AP and lateral weight bearing left hip: No acute fracture or dislocation Normal alignment, minimal subchondral sclerosis no cystic changes Bowel gas pattern unremarkable Impression- no acute bony process right hip Real MCGREGOR IMG XR PROCEDURES Final Resul t * IL ARTHROCENTESIS ASPIR&/INJ MAJOR JT/BURSA W/O US (12/19/2024 11:40 AM EDT) Narrative Jr. Berlin Red, - 12/19/2024 11:40 AM EDT Jr. [place] Red DO 12/23/2024 9:17 PM L Inj/Asp: L greater trochanteric bursa on 12/19/2024 11:40 AM Indications: pain Details: 21 G needle, lateral approach Medications: 40 mg methylPREDNISolone acetate 40 MG/ML Outcome: tolerated well, no immediate complications PATIENT WAS PREPPED WITH ISOPROPYL ALCOHOL. Procedure, treatment alternatives, risks and benefits explained, specific risks discussed. Consent was given by the patient. Immediately prior to procedure a time out was called to verify the correct patient, procedure, equipment, senior support analyst and site/side marked as required. Wilfrido Almodovar NP IN CLINIC/BEDSIDE ORDERABLES Fi nal Result from Last 3 Months Insurance [employer] Care Teams Sports Information Director Relationship Specialty Start Date End Date Unallocated, Noms Provider, [address] [place], [place] [phone] PCP - General Family Medicine 05/12/24
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
--- OUTSIDE RECORDS SUMMARY | 2025-03-06 13:45 | XMS_ITS | CCD ---
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 By: #### D ATCBC ####[facility] [address] [address]DrRitesh Hamilton EO # 0.2 103/ul Normal 0.0-0.7 The [facility] Comment on above: Performed By: #### D ATCBC ####[facility] [address] [address]Dr. Cedric Hamilton Eosinophils/100 WBC (Bld) 3.4 % Normal 0.9-7.0 The [facility] Comment on above: Performed By: #### D ATCBC ####[facility] [address] [place], [place] [address]Dr. Cedric Hamilton Erythrocyte distribution width (RBC) [Ratio] 12.5 % Normal 11.0-15.0 The [facility] Comment on above: Performed By: #### D ATCBC ####[facility] [address] [place], [place] [address]Dr. Cedric Hamilton Hematocrit (Bld) [Volume fraction] 44.0 % Normal 42.0-54.0 The [facility] Comment on above: Performed By: #### D ATCBC ####[facility] [address] [place], [place] [address]Dr. Cedric Hamilton Hemoglobin (Bld) [Mass/Vol] 14.8 g/dL Normal 14.0-18.0 The [facility] Comment on above: Performed By: #### D ATCBC ####[facility] [address] [place], [place] [address]Dr. Cedric Hamilton IG # 0.01 10e3/ul Normal 0.00-0.03 The [facility] Comment on above: Performed By: #### D ATCBC ####[facility] [address] [place], [place] [address]Dr. Cedric Hamilton IG % 0.2 % Normal 0.0-0.5 The [facility] Comment on above: Performed By: #### D ATCBC ####[facility] [address] [place], [place] [address]Dr. Cedric Hamilton LYMPH # 1.7 103/ul Normal 1.2-3.8 The [facility] Comment on above: Performed By: #### D ATCBC ####[facility] [address] [place], [place] [address]Dr. Cedric Hamilton Lymphocytes/100 WBC (Bld) 36.5 % Normal 20.5-60.0 The [facility] Comment on above: Performed By: #### D ATCBC ####[facility] [address] [place], [place] [address]Dr. Cedric Hamilton MCH (RBC) [Entitic mass] 31.2 pg Normal 25.9-34.0 The [facility] Comment on above: Performed By: #### D ATCBC ####[facility] [address] [address]Dr. Cedric Hamilton MCHC (RBC) [Mass/Vol] 33.6 g/dL Normal 29.9-35.2 The [facility] Comment on above: Performed By: #### D ATCBC ####[facility] [address] [address]Dr. Cedric Alfonso MCV (RBC) [Entitic vol] 92.6 fL Normal 80.0-94.0 The [facility] Comment on above: Performed By: #### D ATCBC ####[facility] [address] [place], [place] [address]Dr. Cedric Hamilton MONO # 0.5 103/ul Normal 0.3-0.8 The [facility] Comment on above: Performed By: #### D ATCBC ####[facility] [address] [place], [place] [address]Dr. Mailucretia Hamilton Monocytes/100 WBC (Bld) 9.6 % Normal 1.7-12.0 The [facility] Comment on above: Performed By: #### D ATCBC ####[facility] [address] [place], [place] [address]Dr. Cedric Hamilton NEUT # 2.4 103/ul Normal 1.4-6.5 The [facility] Comment on above: Performed By: #### D ATCBC ####[facility] [address] [place], [place] [address]Dr. Mailucretia Hamilton Neutrophils/100 WBC (Bld) 49.7 % Normal 43.0-75.0 The [facility] Comment on above: Performed By: #### D ATCBC ####[facility] [address] [place], [place] [address]Dr. Cedric Alfonso Platelet mean volume (Bld) [Entitic vol] 10.0 fL Normal 9.5-13.5 The [facility] Comment on above: Performed By: #### D ATCBC ####[facility] [address] [place], [place] [address]Wz. Cedric Hamilton PLT 267 103/ul Normal 150-450 The [facility] Comment on above: Performed By: #### D ATCBC ####[facility] [address] [place], [place] [address]Oo. Cedric Hamilton RBC 4.75 106/ul Normal 4.70-6.10 The [facility] Comment on above: Performed By: #### D ATCBC ####[facility] [address] [place], [place] [address]Sf. Cedric Hamilton WBC 4.8 103/ul Normal 4.0-11.0 [facility] Comment on above: Performed By: #### D ATCBC ####[facility] [address] [place], [place] [address]Tu. Cedric Hamilton RACQUEL - TSHon 05-04-2022 TSH 2.382 uIU/mL Normal 0.358-3.740 The [facility] Comment on above: Performed By: #### D ATBMP, DATTSH, DATPSA #### [facility] [address] [address] [address] Cedric Hamilton TSH RANGE SEE BELOW Normal [facility] Comment on above: Result Comment: <0.3 4 UIU/ml HYPERTHYROID 0.34-5.60 UIU/ml EUTHYROID >5.60 UIU/ml HYPOTHYROID Performed By: #### D ATBMP, DATTSH, DATPSA #### [facility] [address] [address] [address] Cedric Hamilton RACQUEL- BMP WITH LIPIDon 2021 Anion gap [Moles/Vol] 12.7 mmol/L Normal [facility] Comment on above: Performed By: #### D ATBMP, DATTSH, DATPSA #### [facility] [address] [address] [address] Cedric Hamilton Calcium [Mass/Vol] 9.2 mg/dL Normal 8.5-10.1 The [facility] Comment on above: Performed By: #### D ATBMP, DATTSH, DATPSA #### [facility] [address] [place] [address] Dr. Cedric Hamilton Chloride [Moles/Vol] 106 mmol/L Normal 98-107 The [facility] Comment on above: Performed By: #### D ATBMP, DATTSH, DATPSA #### [facility] [address] [place] [address] Dr. Cedric Hamilton Cholesterol [Mass/Vol] 211 mg/dL Critically high <=200 The [facility] Comment on above: Performed By: #### D ATBMP, DATTSH, DATPSA #### [facility] [address] [place] [address] Dr. Cedric Hamilton Cholesterol in HDL [Mass/Vol] 53 mg/dL Normal 40-60 The [facility] Comment on above: Performed By: #### D ATBMP, DATTSH, DATPSA #### [facility] [address] [place] [address] Dr. Cedric Hamilton Cholesterol in LDL [Mass/Vol] 145.4 mg/dL Normal [facility] Comment on above: Performed By: #### D ATBMP, DATTSH, DATPSA #### [facility] [address] [place] [address] Dr. Cedric Hamilton CO2 [Moles/Vol] 27.3 mmol/L Normal 21.0-32.0 The [facility] Comment on above: Performed By: #### D ATBMP, DATTSH, DATPSA #### [facility] [address] [place] [address] Dr. Cedric Hamilton Creatinine [Mass/Vol] 0.97 mg/dL Normal 0.70-1.30 The [facility] Comment on above: Performed By: #### D ATBMP, DATTSH, DATPSA #### [facility] [address] [place] [address] Dr. Cedric Hamilton EGFR-AF CHINESE >60 Normal >=60 The [facility] Comment on above: Performed By: #### D ATBMP, DATTSH, DATPSA #### [facility] [address] [address] [address] Cedric Hamilton EGFR-NON AF CHINESE >60 Normal >=60 [facility] Comment on above: Performed By: #### D ATBMP, DATTSH, DATPSA #### [facility] [address] [address] [address] Cedric Hamilton Glucose [Mass/Vol] 91 mg/dL Normal 74-106 The [facility] Comment on above: Performed By: #### D ATBMP, DATTSH, DATPSA #### [facility] [address] [address] [address] Cedric Hamilton HDL NORMAL > or = 60 mg/dl - LO W CARDIOVASCULAR RISK <40 mg/dl - HIGH CARDIOVASCULAR RISK Normal [facility] Comment on above: Performed By: #### D ATBMP, DATTSH, DATPSA #### [facility] [address] [address] [address] Cedric Hamilton LDL CALC NORMAL SEE BELOW Normal [facility] Comment on above: Result Comment: <100 mg/dl OPTIMAL 100 - 129 mg/dl NEAR OR ABOVE OPTIMAL 130 - 159 mg/dl BORDERLINE HIGH 160 - 189 mg/dl HIGH >190 mg/dl VERY HIGH Performed By: #### D ATBMP, DATTSH, DATPSA #### [facility] [address] [address] [address] Cedric Hamilton Potassium [Moles/Vol] 5.0 mmol/L Normal 3.5-5.1 [facility] Comment on above: Performed By: #### D ATBMP, DATTSH, DATPSA #### [facility] [address] [address] [address] Cedric Hamilton Sodium [Moles/Vol] 141 mmol/L Normal 136-145 [facility] Comment on above: Performed By: #### D ATBMP, DATTSH, DATPSA #### [facility] [address] [address] [address] Cedric Hamilton Triglyceride [Mass/Vol] 63 mg/dL Normal <=150 [facility] Comment on above: Performed By: #### D ATBMP, DATTSH, DATPSA #### [facility] [address] [address] [address] Cedric Hamilton Urea nitrogen [Mass/Vol] 8.0 mg/dL Normal 7.0-18.0 [facility] Comment on above: Performed By: #### D ATBMP, DATTSH, DATPSA #### [facility] [address] [address] [address] Cedric Hamilton Urea nitrogen/Creatinine [Mass ratio] 8.2 mg/mg Normal [facility] Comment on above: Performed By: #### D ATBMP, DATTSH, DATPSA #### [facility] [address] [address] [address] Cedric Hamilton VLDL CALC 12.6 mg/dL Normal [facility] Comment on above: Performed By: #### D ATBMP, DATTSH, DATPSA #### [facility] [address] [address] [address] Cedric Hamilton Vital Signs Date Time Vital Sign Value Performing Clinician Facility 01-07-2025 08:26-0400 Body height 170.2 cm Des Pappas PA Work Phone: [facility] 01-07-2025 08:26-0400 Body mass index (BMI) [Ratio] 26.63 kg/m2 Des Pappas PA Work Phone: [facility] 01-07-2025 08:26-0400 Body weight 77.11 kg Des Pappas PA Work Phone: [facility] 05-12-2024 11:28-0400 Body height 170.2 cm Jr. Stepanic DO Work Phone: [facility] 05-12-2024 11:28-0400 Body mass index (BMI) [Ratio] 22.71 kg/m2 Jr. Stepanic DO Work Phone: [facility] 05-12-2024 11:28-0400 Body weight 65.77 kg Jr. Stepanic DO Work Phone: [facility] 10-03-2020 07:27-0400 Body Temperature 97.3 [degF] Aisha Zuniga [facility] Work Phone: 10-03-2020 07:27-0400 BP Diastolic 80 mm[Hg] Aisha Zuniga [facility] Work Phone: 10-03-2020 07:27-0400 BP Systolic 122 mm[Hg] Aisha Zuniga [facility] Work Phone: 10-03-2020 07:27-0400 Pulse (Heart Rate) 75 /min Aisha Zuniga [facility] Work Phone: 10-03-2020 07:27-0400 Pulse Oximetry 96 % Aisha Zuniga [facility] Work Phone: 10-03-2020 07:27-0400 Respiratory Rate 18 /min Aishaelvia Zuniga [facility] Work Phone: 10-02-2020 17:37-0500 BMI (Body Mass Index) 28.19 kg/m2 Aisha Zuniga [facility] Work Phone: 10-02-2020 17:37-0500 Body weight 81.65 kg Aishaelvia Zuniga [facility] Work Phone: 10-02-2020 17:37-0500 Height 170.2 cm Aishaelvia Zuniga [facility] Work Phone: Encounters Encounter Date Encounter Type Care Provider Facility Start: 02-26-2025 ambulatory Gómez Mehta acility:[facility] Start: 01-07-2025 End: 01-07-2025 Bamboo flowsheet Des Pappas PA Work Phone: [facility] Start: 01-07-2025 End: 01-07-2025 Bamboo flowsheet Des Pappas PA Work Phone: [facility] Start: 01-07-2025 End: 01-07-2025 ambulatory DES PAPPAS Not Available Start: 01-07-2025 End: 01-07-2025 Office outpatient visit 25 minutes Des Pappas PA Work Phone: [facility] Comment on above: Trochanteric bursiti s of right hip (Primary Dx); Right hip pain Start: 12-24-2024 End: 12-25-2024 Telephone encounter Jr. Luca Wilson Stepanic DO Work Phone: [facility] Start: 12-19-2024 End: 12-19-2024 Bamboo flowsheet Jr. Luca Wilson Stepanic DO Work Phone: [facility] Start: 12-19-2024 End: 12-19-2024 Bamboo flowsheet Jr. Luca Wilson Stepanic DO Work Phone: [facility] Start: 12-19-2024 End: 12-19-2024 Office outpatient visit 25 minutes Jr. Luca Red DO Work Phone: [facility] Comment on above: Trochanteric bursiti s of left hip (Primary Dx); Left hip pain Start: 12-19-2024 End: 12-19-2024 ambulatory RiteshLUCA Not Available Start: 09-12-2024 ambulatory Facility: [facility] Start: 09-11-2024 End: 09-19-2024 Telephone encounter Anne [facility] Start: 06-07-2024 ambulatory Kari Irizarry Facility :[facility] Start: 05-20-2024 End: 05-20-2024 Clinisync Result Encounter Jr. Luca Wilson Stepanic DO Work Phone: [facility] Unsolicited Start: 05-20-2024 End: 05-20-2024 Clinisync Result Encounter Jr. Luca Wilson Stepanic DO Work Phone: [facility] Unsolicited Start: 05-12-2024 End: 05-12-2024 Bamboo flowsheet Jr. Luca Haqueanic DO Work Phone: [facility] Start: 05-12-2024 End: 05-12-2024 Andrei flowsheet JrRitesh Wilson Teofilo DO Work Phone: [facility] Start: 05-12-2024 End: 05-12-2024 Office outpatient kami 45 minutes JrRitesh Wilson Teofilo DO Work Phone: [facility] Comment on above: Left hip pain (Prima ry Dx); Polyarthralgia; Tear of left acetabular labrum, initial encounter Start: 05-12-2024 End: 05-12-2024 ambulatory LUCA HU MARGITAMARA Not Available Start: 08-20-2023 End: 08-20-2023 ambulatory Kari Irizarry Other [employer] Other Start: 08-20-2023 Telephone encounter Kari Irizarry [facility] Start: 07-18-2023 End: 07-18-2023 ambulatory Kari Irizarry Other [employer] Other Start: 07-18-2023 Telephone encounter Kari Irizarry [facility] Start: 06-19-2023 End: 06-19-2023 ambulatory Kari Irizarry Other [employer] Other Start: 06-19-2023 Telephone encounter Kari Irizarry [facility] Start: 05-18-2023 End: 05-18-2023 ambulatory Kari Irizarry Other [employer] Other Start: 05-18-2023 Telephone encounter Kari Irizarry [facility] Start: 03-19-2023 End: 03-19-2023 ambulatory Kari Irizarry Other [employer] Other Start: 03-19-2023 Telephone encounter Kari Irizarry [facility] Start: 01-08-2023 End: 01-08-2023 ambulatory Kari Irizarry Other [employer] Other Start: 01-08-2023 Telephone encounter Kari Irizarry [facility] Start: 12-01-2022 End: 12-01-2022 ambulatory Kari Irizarry Other [employer] Other Start: 12-01-2022 Telephone encounter Kari Irizarry [facility] Start: 11-16-2022 End: 11-16-2022 ambulatory Kari Irizarry Other [employer] Other Start: 11-16-2022 Telephone encounter Kari Irizarry [facility] Start: 10-30-2022 End: 10-30-2022 ambulatory Kari Irizarry Other [employer] Other Start: 10-30-2022 Telephone encounter Kari Irizarry [facility] Start: 08-02-2022 End: 08-02-2022 ambulatory DANNY DRISCOLL Facility:[facility] Start: 05-04-2022 End: 05-05-[address] NONE LISTED REQUEST Facility: Start: 09-20-2021 Adult health examination Kari Irizarry Other [employer] Other Start: 10-02-2020 End: 10-03-2020 Patient encounter procedure PATTY PURI [facility] Start: 10-02-2020 End: 10-03-2020 Emergency department patient visit Aisha Rousseau Work Phone: [address] Med Surg Comment on above: Priapism (Primary Dx ) Procedures Date Procedure Procedure Detail Performing Clinician Start: 01-07-2025 Arthrocentesis aspir &/inj major jt/bursa w/o us Des MCGREGOR Work Phone: Start: 01-07-2025 Radex hip unilateral with pelvis 2-3 views Des MCGREGOR Work Phone: Start: 12-19-2024 Arthrocentesis aspir &/inj major jt/bursa w/o us Wilfrido Almodovar FLEXO OPERATOR Work Phone: Start: 05-20-2024 ALL CBC WITH AUTO DIFF Jr. Luca Red DO Work Phone: Start: 05-12-2024 Radex hip unilateral with pelvis 2-3 views Jr. Luca Red DO Work Phone: Start: 05-04-2022 PSA screening DANNY LAM Comment on above: Performed By: #### D ATBMP, DATTSH, DATPSA #### [facility] [address] [place] [address] Dr. Cedric Hamilton Start: 10-02-2020 VENOUS BLOOD GAS, PO INT OF CARE Aisha Rousseau Work Phone: Screening for malign ant neoplasm of colon Kari Irizarry Other Screening for malign ant neoplasm of prostate Kari Irizarry Other Plan of Treatment Date Care Activity Detail Author Start: 03-23-2025 Influenza vaccination Influenza Vaccine (Season Ended) [facility] Start: 02-20-2025 End: 02-20-2025 Patient encounter procedure 02/20/2025 11:15 AM EDT Office Visit [facility] [address] [place] [address] Jr. Luca Red, DO [address] [facility] [address] [place] [address] [facility] Start: 01-07-2025 End: 01-07-2025 Patient encounter procedure 01/07/2025 8:15 AM EDT Office Visit [facility] [address] [place] [phone] Des Pappas PA [address] [place] [address] [place] [address] [facility] Start: 12-19-2024 End: 12-19-2024 Patient encounter procedure 12/19/2024 11:15 AM EDT Office Visit [facility] [address] [place] [address] Jr. Luca Red, [address] [place] [address] [place] [address] Arrived [facility] Comment on above: Arrived Start: 06-11-2024 End: 06-11-2024 Patient encounter procedure 06/11/2024 9:45 AM EST Office Visit [facility] [address] [place] [phone] Jr. Luca Red, DO [address] [place] [address] [place] [address] [facility] Start: 06-04-2024 End: 06-04-2024 Patient encounter procedure 06/04/2024 9:45 AM EST Office Visit [facility] [address] [place] [id number] Jr. Luca Red, DO [address] [place] [address] [place] [address] [facility] Start: 05-12-2024 End: 05-12-2025 C reactive protein [Mass/volume] in Serum or Plasma C-reactive protein Lab Routine Polyarthralgia Expected: 05/12/2024 (Approximate), Expires: 05/12/2025 [facility] Comment on above: Expected: 05/12/2024 (Approximate), Expi res: 05/12/2025 Start: 05-12-2024 End: 05-12-2025 CBC W Auto Differential panel - Blood CBC and differential Lab Routine Polyarthralgia Expected: 05/12/2024 (Approximate), Expires: 05/12/2025 [facility] Work Phone: Comment on above: Expected: 05/12/2024 (Approximate), Expi res: 05/12/2025 Start: 05-12-2024 End: 05-12-2025 Erythrocyte sedimentation rate Sedimentation rate, automated Lab Routine Polyarthralgia Expected: 05/12/2024 (Approximate), Expires: 05/12/2025 [facility] Comment on above: Expected: 05/12/2024 (Approximate), Expi res: 05/12/2025 Start: 05-12-2024 End: 05-12-2025 HLA-B27 antigen HLA-B27 antigen Lab Routine Polyarthralgia Expected: 05/12/2024 (Approximate), Expires: 05/12/2025 [facility] Comment on above: Expected: 05/12/2024 (Approximate), Expi res: 05/12/2025 Start: 05-12-2024 End: 05-12-2025 LYME DISEASE ANTIBODY (IGG), IMMUNOBLOT LYME DISEASE ANTIBODY (IGG), IMMUNOBLOT Lab Routine Polyarthralgia Expected: 05/12/2024 (Approximate), Expires: 05/12/2025 [facility] Comment on above: Expected: 05/12/2024 (Approximate), Expi res: 05/12/2025 Start: 05-12-2024 End: 05-12-2025 MR Hip - left Arthrogram MR hip arthrogram left Imaging Routine Tear of left acetabular labrum, initial encounter Expected: 05/12/2024 (Approximate), Expires: 05/12/2025 [facility] Comment on above: Expected: 05/12/2024 (Approximate), Expi res: 05/12/2025 Start: 05-12-2024 End: 05-12-2025 Nuclear Ab [Titer] in Serum by Immunofluorescence AXEL Lab Routine Polyarthralgia Expected: 05/12/2024 (Approximate), Expires: 05/12/2025 [facility] Comment on above: Expected: 05/12/2024 (Approximate), Expi res: 05/12/2025 Start: 05-12-2024 End: 05-12-2025 Rheumatoid factor [Units/volume] in Serum or Plasma Rheumatoid factor Lab Routine Polyarthralgia Expected: 05/12/2024 (Approximate), Expires: 05/12/2025 [facility] Comment on above: Expected: 05/12/2024 (Approximate), Expi res: 05/12/2025 Start: 05-12-2024 End: 05-12-2025 SYSTEMIC LUPUS ERYTHEMATOSUS (SLE), DISEASE ACTIVITY PANEL SYSTEMIC LUPUS ERYTHEMATOSUS (SLE), DISEASE ACTIVITY PANEL Lab Routine Polyarthralgia Expected: 05/12/2024 (Approximate), Expires: 05/12/2025 [facility] Comment on above: Expected: 05/12/2024 (Approximate), Expi res: 05/12/2025 Start: 05-12-2024 End: 05-12-2025 Urate [Mass/volume] in Serum or Plasma Uric acid Lab Routine Polyarthralgia Expected: 05/12/2024 (Approximate), Expires: 05/12/2025 [facility] Comment on above: Expected: 05/12/2024 (Approximate), Expi res: 05/12/2025 Start: 05-12-2024 End: 05-12-2024 Patient encounter procedure 05/12/2024 11:15 AM EDT Office Visit [facility] [address] [place] [address] Jr. Luca Red, DO [address] [facility] [address] [place] [address] Arrived [facility] Comment on above: Arrived Start: 03-23-2024 Influenza vaccination [facility] Start: 10-14-2022 Adult BMI Screening Adult BMI Screening [facility] Start: 2020 Administration of varicella zoster vaccine Zoster (Shingles) Vaccine (1 of 2) [facility] Start: 03-23-2020 Influenza vaccination Flu vaccine (#1) [facility] Phone: Start: 1989 DTaP,Tdap and Td Vaccines (1 - Tdap) DTaP,Tdap and Td Vaccines (1 - Tdap) [facility] Start: 1982 Depression Screening Depression Screening [facility] Start: 1982 Tobacco Screening Tobacco Screening [facility] Start: 1970 Screening for malignant neoplasm of colon [facility] Venous Blood Gas, POC Venous Blo od Gas, POC Point of Care Testing Routine 10/02/2020 8:17 PM EST [facility] [employer] Phone: Immunizations Immunization Date Immunization Notes Care Provider Fa cility NEGATED: Highlighted row has not occurred!10-13-2021 tetanus toxoid, reduced diphtheria toxoid, and acellular pertussis vaccine, adsorbed Anne [facility] Payers Date Payer Category Payer Medicaid [id number] 2019 Medicaid [id number] 1970 Unknown [id number] 2.16.8 [id number] 1970 Unknown [id number] 2.16.84 [id number] 1970 Unknown [id number] 2.16.8 [id number] 1970 Unknown [id number] 2.16.8 [id number] 1970 Unknown [id number] 2.16.84 [id number] 1970 Unknown [id number] 2.16.84 [id number] 1970 Unknown [id number] 2.16.84 [id number] 1959 Self-pay 1959 Unknown [id number] 1. [id number] Unknown [id number] 2.16.84 [id number] Unknown [id number] 2.16.8 [id number] Unknown [id number] 2.16.8 [id number] Social History Date Type Detail Facility Start: 10-02-2020 End: 05-12-2024 Tobacco smoking status NDIS Never smoker [facility] Phone: Start: 10-02-2020 End: 05-12-2024 Tobacco use and exposure Never used [facility] Phone: Start: 10-02-2020 End: 10-13-2021 Alcohol intake Current drinker of alcohol (finding) [facility] Phone: Start: 10-02-2020 Alcohol Comment intermittently social drinker [facility] Phone: Start: 1970 Sex Assigned At Not on file [facility] Phone: Exposure to SARS-CoV-2 (event) Not sure [facility] Phone: Start: 05-12-2024 End: 01-07-2025 Sex Assigned At [facility] Other Tobacco smoking status NDIS Tobacco smoking consumption unknown [facility] Start: 05-12-2024 End: 01-07-2025 Alcoholic beverage intake Ex-drinker (finding) [facility] Start: 05-12-2024 End: 01-07-2025 History of Social function [facility] Start: 10-13-2021 Alcohol Comment Pt states occasionally on weekends [facility] Start: 10-12-2021 Sex Male (finding) [facility] Goals Date Patient Goal Desired Activity /State Personal health goal Comment on above: Formatting of this n ote might be different from the original. Evaluation of progress towards goal:Safe transition to home with mom/self-care. - ALIE Lambert 10/13/21 11:31 AM Clinical Notes 10-30-2022 to 01-07-2025 MECHE Arciniega - 01/07/2025 8:15 AM EDTTelephone Encounter - Anitha Pham - 12/25/2024 2:41 PM EDTTelephone Encounter - Anitha Pham - 12/25/2024 2:41 PM EDT Note Date & Type Note Facility 01-07-2025 History of Present illness Narrative Associated Order(s): L Inj/Asp: R greater trochanteric bursa Post-Procedure Diagnose(s): Trochanteric bursitis of right hip Images from the original note were not included. Orthopedic Office note: NAME: Caryn Antunez : 1970 EST PT; MOST RECENT VISIT WITH DR RED WITH NEW C/O RT HIP PAIN OFF AND ON FOR YRS- PT USED TO WRESTLE RECENT LT HIP BURSA INJ 12/19/24 XRAY RT HIP TODAY EPIC 01/07/25 ARTHRITIS PANEL 05/20/24 PAIN LATERAL HIP- SOME TENDERNESS TO TOUCH- INCREASE PAIN AFTER SITTING WITH LEGS CROSSED- NO PAIN MEDS Hip Musculoskeletal Exam Gait Gait is normal. Antalgic: right Inspection Leg length disparity: no discrepancy Right Erythema: none Ecchymosis: none Edema: none Deformity: none Palpation Right Right hip palpation is normal. Increased warmth: none Tenderness: present Greater trochanteric region pain: moderate Range of Motion Right Right hip range of motion is within functional limits. Active ROM: normal. Passive ROM: normal. Active extension: 30. Passive extension: 30. Active flexion: 100. Passive flexion: 100. Active internal rotation: 20. Passive internal rotation: 20. Active external rotation: 30. Passive external rotation: 30. Active adduction: 20. Passive adduction: 20. Active abduction: 35. Passive abduction: 35. Strength Right Right hip strength is normal. Extension: 5/5. Flexion: 5/5. Internal rotation: 5/5. External rotation: 5/5. Adduction: 5/5. Abduction: 5/5. Abduction is affected by pain. Neurovascular Right Right hip neurovascular exam is normal. Pulses - PT: normal Posterior tibial: 2+ General Constitutional: appears stated age Labored breathing: no Psychiatric: normal mood and affect Neurological: alert and oriented x3 Skin: intact Lymphadenopathy: none Orders Placed This Encounter Procedures L Inj/Asp This order was created via procedure documentation XR hip right 2 or 3 views Reason for exam:: PAIN L Inj/Asp: R greater trochanteric bursa on [...] discussed. Consent was given by the patient. Results - Imaging: - Previous MRI of left hip showed a nondisplaced labral tear ICD-10-CM 1. Trochanteric bursitis of right hip M70.61 2. Right hip pain M25.551 XR hip right 2 or 3 views Assessment & Plan Right lateral hip pain. He had a previous MRI of his left hip showing a nondisplaced labral tear. He has no pain with FADIR's test bilaterally today. His pain is localized to palpation, and he recently had an injection in the left hip with relief. He is requesting an injection in the right hip. Diagnostic plan: None. Treatment plan: A home exercise plan for piriformis stretches and trochanteric bursitis exercises was provided. Consider oral anti-inflammatory or intra-articular injection depending on symptoms. Clinical decision making: The risks and benefits of cortisone were discussed. Surgical and nonsurgical treatment options were discussed. Follow-up: He will call if his symptoms return or worsen for reevaluation. PROCEDURE Procedure Performed Injection in the left hip Outcome Relief Questions answered in laymen terms at the bedside. The diagnosis, home exercise plan and any ongoing restrictions/ recommendations reviewed. If unable to be reached in office, I recommend evaluation at nearest Emergency Room if any symptoms worsened or new symptoms develop for requiring urgent evaluation. Visit was preformed using [employer] pilot speech recognition. documented in this encounter [facility] 12-25-2024 Telephone encounter Note Patient called back, he will come in sometime to pick out hand in [place]. Please just put it aside for now he stated. [facility] 12-25-2024 Miscellaneous Notes Patient called back, he will come in sometime to pick out hand in [employer]. Please just put it aside for now he stated. Patient called in stating that ordered blood work to be done at [facility] a few months ago. He would just like to know what was tested for his personal records. He did state that everything was good. Please advise [phone] documented in this encounter [facility] 12-24-2024 Telephone encounter Note Patient called in stating that ordered blood work to be done at [facility] a few months ago. He would just like to know what was tested for his personal records. He did state that everything was good. Please advise [phone] [facility] 12-19-2024 History of Present illness Narrative Associated Order(s): L Inj/Asp: L greater trochanteric bursa Post-Procedure Diagnose(s): Left hip pain Images from the original note were not included. HISTORY OF PRESENT ILLNESS: EST PT Caryn Antunez is an 54 y.o. @ male. (EST PT) - LAST SEEN ON 05/12/24 - RECHECK (L) HIP PAIN - S/P MRI ARTHROGRAM DONE AT [facility] ON 08/07/24 - S/P LABS (ARTHRITIS PANEL DONE AT [facility] ON 05/20/24 XR (L) HIP 05/12/24 IN EPIC MRI (L) HIP ARTHROGRAM 08/07/24 @ [facility] MDP 05/12/24 LABS (ARTHRITIS PANEL) 05/20/24 @ [facility] HX PHYSICAL THERAPY YRS AGO (L) HIP PAIN FOR YRS- SYMPTOMS STARTED AFTER WORKING ON [employer] YRS AGO - PAIN LATERAL HIP, INTERMITTENT - DENIES GROIN PAIN - PAIN IS WORSE WITH PROLONGED WALKING- PT STATES HE SITS AUSTRIAN STYLE A LOT, MOSTLY AT WORK- THIS CAUSES PAIN- DENIES N/T- NO PAIN MEDS- NOT USING ICE, HEAT, OR TOPICAL CREAMS - DENIES N/T - DENIES SWELLING - DENIES GIVING OUT SENSATION - DENIES CRACKING, POPPING, OR GRINDING. ALLERGIES: No Known Allergies HOME MEDICATIONS: Current Outpatient Medications Medication Instructions benztropine (COGENTIN) 0.5 mg, 2 times daily buPROPion SR (WELLBUTRIN SR) 100 mg, Every morning busPIRone (BUSPAR) 5 mg, 2 times daily chlorhexidine (Peridex) 0.12 % solution use 15ml BY MOUTH TWICE DAILY for 20 days finasteride (PROSCAR) 5 mg, Daily ketoconazole (NIZOral) 2 % shampoo use on scalp EVERY DAY Lybalvi 20-10 MG per tablet 1 tablet, Nightly methylPREDNISolone (Medrol Dospak) 4 MG tablets Follow schedule on package instructions minoxidil (Loniten) 2.5 MG tablet TAKE 1/2 (ONE-HALF) OF A TABLET BY MOUTH DAILY OLANZapine (ZyPREXA) 15 MG tablet 1 tablet, Nightly pimecrolimus (Elidel) 1 % cream APPLY a thin layer TO THE AFFECTED AREA(S) TO THE FACE DAILY NEEDED for flares propranolol (Inderal) 10 MG tablet TAKE 1/2 (ONE-HALF) OF A TABLET BY MOUTH TWICE DAILY sertraline (ZOLOFT) 200 mg, Daily tretinoin (Retin-A) 0.05 % cream APPLY TO THE FACE EVERY OTHER DAY then increase to DAILY NEEDED venlafaxine XR (EFFEXOR XR) 150 mg, Daily PHYSICAL EXAM: Hip Musculoskeletal Exam Gait Gait is normal. Inspection Leg length disparity: no discrepancy Left Erythema: none Ecchymosis: none Edema: none Deformity: none Palpation Left Increased warmth: none Tenderness: present Greater trochanteric region pain: moderate Range of Motion Left Left hip range of motion is within functional limits. Active ROM: normal. Passive ROM: normal. Strength Left Left hip strength is normal. Extension: 5/5. Flexion: 5/5. Internal rotation: 5/5. External rotation: 5/5. Adduction: 5/5. Abduction: 5/5. Abduction is affected by pain. Neurovascular Left Left hip neurovascular exam is normal. Pulses - PT: normal Posterior tibial: 2+ General Constitutional: appears stated age Labored breathing: no Psychiatric: normal mood and affect Neurological: alert and oriented x3 Skin: intact Lymphadenopathy: none Vitals: There is no height or weight on file to calculate BMI. Tobacco Use: Low Risk (12/19/2024) Patient History Smoking Tobacco Use: Never Smokeless Tobacco Use: Never Passive Exposure: Not on file Alcohol Use: Not on file IMAGING: L Inj/Asp: L greater trochanteric bursa on [...] to verify the correct patient, procedure, equipment, sales support consultant and site/side marked as required. Orders Placed This Encounter Procedures L Inj/Asp: L greater trochanteric bursa This order was created via procedure documentation ASSESSMENT: ICD-10-CM 1. Trochanteric bursitis of left hip M70.62 2. Left hip pain M25.552 L Inj/Asp: L greater trochanteric bursa PLAN: 1. 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 2. Possible mild left greater trochanteric bursitis. Labwork negative. Questions answered in laymen terms at the bedside. The diagnosis, home exercise plan and any ongoing restrictions/ recommendations reviewed. If unable to be reached in office, I recommend evaluation at nearest Emergency Room if any symptoms worsened or new symptoms develop for requiring urgent evaluation. documented in this encounter [facility] 09-11-2024 Miscellaneous Notes Patient called and would like to become a patient here. Will you accept? LM that we are on a hold right now. documented in this encounter [facility] 09-11-2024 Telephone encounter Note Patient called and would like to become a patient here. Will you accept? [facility] 09-11-2024 Telephone encounter Note LM that we are on a hold right now. [facility] 05-12-2024 History of Present illness Narrative Images from the original note [...] DOWN TO KNEE- PT STATES HE SITS AUSTRIAN STYLE A LOT - CONTINUES HEP - [...] Future Standing Expiration Date: 05/12/2025 Scheduling Instructions: [facility] ; Please call patient to schedule, thank [...] today we are recommending an arthritis panel (@[facility])cbc secondary to multiple joint pain ; patient [...] discuss labs and MRI arthrogram results. Luca Rde D.O. documented in this encounter [facility] 08-20-2023 Evaluation note Encounter Date Diagnosis Assessment Notes Jul, Anxiety, generalized (ICD-10 - F41.1) [facility] Other 12-27-2023 Evaluation note* Encounter Date Diagnosis Assessment Notes Treatment Notes Treatment Clinical Notes Jun, Anxiety, generalized (ICD-10 - F41.1) [facility] Other 11-28-2023 Evaluation note* Encounter Date Diagnosis Assessment Notes Treatment Notes Treatment Clinical Notes May, Anxiety, generalized (ICD-10 - F41.1) [facility] Other 10-27-2023 Evaluation note* Encounter Date Diagnosis Assessment Notes Treatment Notes Treatment Clinical Notes Apr, Anxiety, generalized (ICD-10 - F41.1) [facility] Other 08-28-2023 Evaluation note* Encounter Date Diagnosis Assessment Notes Treatment Notes Treatment Clinical Notes Feb, Anxiety, generalized (ICD-10 - F41.1) [facility] Other 06-19-2023 Evaluation note* Encounter Date Diagnosis Assessment Notes Treatment Notes Treatment Clinical Notes Dec, Anxiety, generalized (ICD-10 - F41.1) [facility] Other 05-12-2023 Evaluation note* Encounter Date Diagnosis Assessment Notes Treatment Notes Treatment Clinical Notes November, Anxiety, generalized (ICD-10 - F41.1) [facility] Other 04-10-2023 Evaluation note* Encounter Date Diagnosis Assessment Notes Treatment Notes Treatment Clinical Notes Oct, Anxiety, generalized (ICD-10 - F41.1) [facility] Other Evaluation noteNo [employer] Other Evaluation note* Diagnosis Left hip pain- Primary Pain in joint, pelvic region and thigh Polyarthralgia Pain in joint, multiple sites Tear of left acetabular labrum, initial encounter documented in this encounter [facility]* Diagnosis Trochanteric bursitis of left hip- Primary Left hip pain Pain in joint, pelvic region and thigh documented in this encounter [facility]* Diagnosis Trochanteric bursitis of right hip- Primary Right hip pain Pain in joint, pelvic region and thigh documented in this encounter [facility] HealthcareHistory general Narrative - Reported* Type Description Date Medical History BMI 32.0-32.9,adult Medical History Anxiety, generalized Medical History Hair loss Medical History SERUM LIPIDS HIGH [facility] Other History general Narrative - Reported* Type Description Date Medical History BMI 32.0-32.9,adult Medical History Anxiety, generalized Medical History Hair loss Medical History SERUM LIPIDS HIGH Surgical History Problem Title : L wrist surgery , Problem Status : Active, [facility] Other InstructionsNot on filedocumented in this encounter [facility] Discharge Instructions * Instructions* Brynn Laird DO - 10/03/2020 THANK YOU!!! From [facility] Emergency Department On behalf of the Emergency Department staff at [facility]'s Emergency Department, I would like to thank you for giving [facility] the opportunity to address your health care needs and concerns. We hope that during your visit, our service was delivered in a professional and caring manner. Please keep [facility] in mind as we walk [...] tolerated Please call attending physician or hospital operator technician with questions Call or Present to ED [...] Healthcare Providers Services Day of Week/ Hours [facility] [address] [facility] Pediatric Primary Care Adult Primary Care DECAL APPLIER//Specialty Clinics Sunday 8:00a 4:30p [address] Adult Medicine, Pediatrics, DECAL APPLIER Sunday 8:30a 4:30p [facility] Surgery [address] [place] [address] Sunday 8:30a 11:00a [facility] [address] [facility] Adult Internal Medicine ([facility]) DECAL APPLIER Clinic Pediatric Clinic Sunday, Sunday, , Sunday 8:00a 4:30p Sunday 1:00p 4:30p Sunday, Sunday, 8:00a 5:00p; Sunday 8:00a 12:30p Sunday 1p 4p Sunday, Sunday, , Sunday 8:30a 4:15p Sunday 12:30p 4:15p Health Department [facility] [address] [place] [address] Pediatric Primary Care Adult Primary Care OB/ Sunday, Sunday 8a 12p 8a 4:45p [facility] [address] [place] [address] # Pre & Post Adoption Counseling Support / nutrition Care Reward Incentive Program [facility] Sun, , Sun, Sun 10:00a 4:30p Thur 10:00a 7:30p [facility] [place] Location Sunday - Sunday 10a 4:30p [facility] DECAL APPLIER [address] Adult Internal Medicine [address] [facility] Pediatrics [address] [facility], [address] Neuro / Headache [address] [facility], [address] Sunday 8:30a 5p [facility] [address] [facility] Sun, , , Sun 9:00a 4:30p Wed 1:00p 4:30p [facility] [address] [facility] [address] [facility] Sunday 8:30a 5:00p [facility] Specialty Clinics [address] [facility] [address] Burn/Plastic, ENT, GI, Orthopedics, Surgical / Trauma, Urology, Vascular Sunday 8:00 4:30p Call for an appointment [facility] [address] [facility] Adult Medicine, Eye Clinic, Dental Patient must be certified homeless Under age 18 not accepted Sunday 8:00 4:30p [facility] [address] [facility] OB Sunday, Sunday, Sunday, Sunday 9a 5p 9a 6p Sunday (OB only) [facility] [address] [facility] OB/ Sunday 11a 7p , Sun, 9a 5p Sunday 8a 4p 1st Sunday 9a 1p Podiatry Clinic [address] [facility] [address] Sunday 8:00 4:30 p Center [facility] [address] [place] [address] Free nurse visits [facility] Counseling Class Call or walk in [facility] [address] [place] Various Clinics 8a 5:30p [facility] Family Medicine [facility] [address] [facility], [address] Family Practice Sunday 8a 4:30p [facility] [address] [place] [address] [id number] [address] [place] [address] Sunday 8a 4:30p Sunday 8a 4:30p 8a 8p Outpatient Clinics [facility] [place] [facility] [address] [facility] Sunday 9a 5p Diabetic Education Services Call for an appointment [facility] Heart Failure Clinic [address] [facility] Sunday 8:30a 4p Dental Services [facility] [address] [facility] Must have source of income and must bring (2) recent check stubs to appointment By appointment only [facility] [address] Patient must be homeless, call for eligibility guidelines. Under age 18 NOT accepted Days and hours vary (Doors open at 8:30a day of week varies) Call for an appointment Miscellaneous Information [facility] Call for Help [phone] Call for an appointment H.E.L.P (Hospital Eligibility Link Program) toll free For financial assistance documented in this encounter History of Present Illness * Walter Hilario MD - 10/03/2020 12:40 PM EDT [facility] CDU / OBSERVATION ENCOUNTER ATTENDING NOTE I [...] section and content) DATE CREATED AUTHOR 10/10/[address] [facility] DATE CREATED AUTHOR AUTHOR'S ORGANIZ ATION 08/05/2022 [facility] pital DATE CREATED AUTHOR AUTHOR'S ORGANIZ ATION 09/14/2024 [facility] DATE CREATED AUTHOR AUTHOR'S ORGANIZ ATION 01/12/2025 [facility] d[facility] Specialists EPIC DATE CREATED AUTHOR AUTHOR'S ORGANIZ ATION 03/04/2025 [facility] y[facility]ician Group REASON FOR VISIT (unrecogniz ed section and content) Reason Comments Follow-up Reason Comments Pain Refill Care Teams (unrecognized sec tion and content) Top Loader Relationship Specialty Start Date End Date Unallocated, Sowmya Tucker MD [address] [place] [address] [place] [address] PCP - General Family Medicine 05/12/24 Top Loader Relationship Specialty Start Date End Date Unallocated, Sowmya Tucker MD [address] [facility] [place] [address] PCP - General Family Medicine 05/12/24 Top Loader Relationship Specialty Start Date End Date Unallocated, Sowmya Tucker MD [address] [place] [address] PCP - General Family Medicine 05/12/24 Top Loader Relationship Specialty Start Date End Date No Pcp, [place] [address] [facility] 10/13/21 Top Loader Relationship Specialty Start Date End Date Unallocated, Sowmya Tucker MD [address] [place] [address] PCP [facility] 05/12/24 Top Loader Relationship Specialty Start Date End Date Unallocated, Sowmya Tucker MD [address] [facility] [place] [address] PCP [facility] 05/12/24 Top Loader Relationship Specialty Start Date End Date Unallocated, Sowmya Tucker MD [address] [facility] [place] [address] PCP [facility] 05/12/24 Top Loader Relationship Specialty Start Date End Date Unallocated, Sowmya Tucker MD [address] [facility] [place] [address] [facility] 05/12/24 Top Loader Relationship Specialty Start Date End Date Unallocated, Sowmya Tucker MD [facility] [place] [address] [facility] 05/12/24 FOR RECORDS PERTAINING TO PATIENTS WHO [...] BE BASED ON THE PRIMARY CLINICAL RECORDS. [facility] [employer] [facility]. provides no warranty or guarantee of the accuracy or completeness of information in this document.
--- NOTE | 2025-03-06 14:06 | CT_ITS ---
The [address] [address] Patient Name: TOBY SIMON MRN: [id number] date: 1970 Sex: M Assigned Patient Location: ER Current Patient Location: ER Accession/Order Number: [id number] Exam Date: 03/06/2025 15:09 Report Date: 03/06/2025 15:12 At the request of: DAREN AMAYA NP Procedure: CT abdomen pelvis wo con CT Abdomen and Pelvis withoutcontrast TECHNIQUE: Axial imaging with 2-D reconstruction. . The CT exam was performed using one or more the following dose reduction techniques: Automated exposure control, adjustment of the MA and/or Kv according to patient size, or use of the iterative reconstruction technique. COMPARISON: 10/03/2023 History: Bilateral flank pain. Nausea. LIMITATIONS: None LOWER THORAX mild atelectasis LIVER: Hepatic steatosis GALLBLADDER: No gallbladder abnormality identified. BILE DUCTS: No dilatation SPLEEN: Unremarkable PANCREAS: Unremarkable ADRENAL GLANDS: Unremarkable KIDNEYS:Unremarkable AORTA: No abdominal aortic aneurysm identified. RETROPERITONEUM: No significant retroperitoneal abnormalities identified. MESENTERY:Unremarkable STOMACH:Unremarkable SMALL BOWEL: The small bowel loops are nondistended. The duodenal diverticulum APPENDIX: The appendix is normal. COLON: Sigmoid diverticulosis URINARY BLADDER: Urinary bladder is unremarkable. REPRODUCTIVE SYSTEM: Reproductive structures are unremarkable. PNEUMOPERITONEUM: None PERITONEAL FLUID:None BONY STRUCTURES: Unremarkable ABDOMINAL WALL: Fat-containing umbilical hernia CT/CT abdomen pelvis wo con IMPRESSION: No acute findings. Impression dictated by: Pato Garcia M.D. 03/06/2025 3:12 PM Dictation Location: [facility] Electronically authenticated by: [id number] Y Date: 03/06/2025 15:12
--- NOTE | 2025-03-06 14:07 | XR_ITS ---
[address] [address] Patient Name: TOBY SIMON MRN: [id number] date: 1970 Sex: M Assigned Patient Location: ER Current Patient Location: ER Accession/Order Number: [id number] Exam Date: 03/06/2025 15:08 Report Date: 03/06/2025 15:08 At the request of: DAREN AMAYA NP Procedure: XR chest 2V Plain film chest 2 view HISTORY: Bilateral flank pain. Gastric pain COMPARISON: None FINDINGS: SUPPORT DEVICES: None POSTSURGICAL CHANGES: None HEART: Within normal limits PULMONARY KELSEY: Within normal limits MEDIASTINUM: Unremarkable LUNGS AND PLEURA: No acute lung process, pleural effusion or pneumothorax identified. Mild atelectasis BONY STRUCTURES: Intact ADDITIONAL FINDINGS None XR/XR chest 2V IMPRESSION: No acute process. Impression dictated by: Pato Garcia M.D. 03/06/2025 3:08 PM Dictation Location: [facility] Electronically authenticated by: [id number] Y Date: 03/06/2025 15:08
--- NOTE | 2025-03-06 14:07 | ECG_ITS ---
The [facility] Test Date: 2025-03-06 Pat Name: TOBY SIMON Department: Room: - Gender: Male Registered Nurse Renal: : 1970 Requested By: [id number] Order Number: [id number] Reading MD: LUCA ROSADO M.D. Measurements Intervals [place] Rate: 95 P: 60 NV: 150 QRS: 270 QRSD: 82 T: 18 QT: 346 QTc: 398 Interpretive Statements 1100 Sinus rhythm 3114 Cannot rule out anterior myocardial infarction, age undetermined 5120 Possible right ventricular hypertrophy 9150 abnormal ECG Compared to ECG 08/02/2022 15:51:20 Myocardial infarct finding now present Electronically Signed On 03-06-2025 20:53:50 EDT by LUCA ROSADO M.D.
--- NOTE | 2025-03-06 14:10 | ED.GENADUL1 ---
HPI HPI - General Adult General Chief complaint: Abdominal Pain Stated complaint: BILATERAL FLANK PAIN, ABDOMINAL PAIN Time Seen by Provider: 03/06/25 13:49 Source: patient Mode of arrival: walk-in Limitations: no limitations History of Present Illness HPI narrative: The patient is a 54-year-old male who presents to the emergency department today for evaluation of concerns for flank and abdominal discomfort. He endorses 4 to 5 days ago he began having what he describes to be a constant and dull ache to the flank region of his back. He reports associated symptoms of nausea without vomiting. He does endorse some pain to the left side of his abdomen. He reports the pain to not be colicky in nature. He mentions he has had some episodes of diaphoresis with feeling nauseous. No dizziness or syncope. Denies any chest pain or shortness of breath. He does endorse daily drinking otherwise declined to quantify the amount of alcohol consumption. He otherwise denies any significant medical or surgical history. Related Data Home Medications ?Medication ?Instructions ?Recorded ?Confirmed alprazolam 0.5 mg tablet (Xanax) 0.5 mg PO DAILY 10/03/23 10/03/23 Flax seed oil 1 tab PO DAILY 08/07/24 08/07/24 [place]-3 1 tab PO DAILY 08/07/24 08/07/24 Vitamin B-12 1 tab PO DAILY 08/07/24 08/07/24 Vitamin C 1 tab PO DAILY 08/07/24 08/07/24 Vitamin D3 1 tab PO DAILY 08/07/24 08/07/24 biotin 1 tab PO DAILY 08/07/24 08/07/24 finasteride 1 tab PO DAILY 08/07/24 08/07/24 magnesium 1 tab PO DAILY 08/07/24 08/07/24 multivitamin 1 tab PO DAILY 08/07/24 08/07/24 pyridoxine (vitamin B6) 1 tab PO DAILY 08/07/24 08/07/24 vitamin A 1 tab PO DAILY 08/07/24 08/07/24 vitamin E 1 tab PO DAILY 08/07/24 08/07/24 vitamin e 1 tab PO DAILY 08/07/24 08/07/24 Previous Rx's ?Medication ?Instructions ?Recorded ondansetron 4 mg disintegrating 4 mg PO Q8H PRN nausea and 03/06/25 tablet vomiting 4 days #10 tabs Allergies Allergy/AdvReac Type Severity Reaction Status Date / Time No Known Drug Allergies Allergy Verified 08/07/24 09:03 Opioid HPI Opioid Management Most Recent Opioid Data: Last Pain Scale 0 Today, 13:43 Review of Systems ROS Status of ROS 10 or more systems reviewed and unremarkable except as noted in history and below [facility] Medical History (Updated 03/06/25 @ 16:03 by Mel Harrison NP) Polyarthralgia ?M25.50 - Pain in unspecified joint (ICD-10) Hip pain, left ?M25.552 - Pain in left hip (ICD-10) Surgical History (Updated 08/07/24 @ 08:57 by Griselda Obrien) S/P left rotator cuff repair ?Z98.890 - Other specified postprocedural states (ICD-10) H/O wrist surgery ?Z98.890 - Other specified postprocedural states (ICD-10) History of myringotomy ?Z98.890 - Other specified postprocedural states (ICD-10) History of tonsillectomy and adenoidectomy ?Z90.89 - Acquired absence of other organs (ICD-10) Social History Little interest or pleasure in doing things: not at all Feeling down, depressed, or hopeless: not at all Exam Narrative Exam Narrative: Constituational: Awake/ alert, the ill and fatigued appearing HENMT: normocephalic, external ears normal, moist oral mucous membranes and oropharynx normal Eyes: EOMI and conjunctivae normal Neck: ROM intact Chest: inspection of chest normal Respiratory: Normal respiratory effort, clear to auscultation bilaterally Cardio: regular rate and regular rhythm GI: + Discomfort to LUQ/LMQ, abdomen is otherwise soft, nontender, no rebound, guarding, + B/L CVA discomfort Back: nontender MSK: ROM intact, +NVI Skin: no rashes or petechiae Neuro: no focal deficits Psych: mental status grossly normal Constitutional Vital Signs, click to edit/add: Last Vital Signs Temp 98.1 F 03/06/25 13:43 Pulse 99 H 03/06/25 13:43 Resp 18 03/06/25 13:43 BP 132/99 H 03/06/25 13:43 Pulse Ox 97 03/06/25 13:43 O2 Del Method Room Air 03/06/25 13:43 Course Vital Signs Vital signs: Vital Signs Temperature 98.1 F 03/06/25 13:43 Pulse Rate 99 H 03/06/25 13:43 Respiratory Rate 18 03/06/25 13:43 Blood Pressure 132/99 H 03/06/25 13:43 Pulse Oximetry 97 03/06/25 13:43 Oxygen Delivery Method Room Air 03/06/25 13:43 Temperature 98.1 F 03/06/25 13:43 Pulse Rate 99 H 03/06/25 13:43 Respiratory Rate 18 03/06/25 13:43 Blood Pressure 132/99 H 03/06/25 13:43 Pulse Oximetry 97 03/06/25 13:43 Oxygen Delivery Method Room Air 03/06/25 13:43 Medical Decision Making MDM Narrative Medical decision making narrative: 54-year-old male who presented to the emergency department today for evaluation of concerns for flank area pain bilaterally with mostly left upper and epigastric region abdominal discomfort. Initial examination vital signs overall stable. No acute abdominal findings on exam. He does not appear to be exhibiting any ischemic symptoms and additionally is euvolemic on exam. EKG without acute changes and troponin negative x 1. Patient was offered analgesic medication in addition to antiemetics while in the emergency department and declined as he reported his symptoms did not be that significant. Labs show no significant leukocytosis, anemia, or thrombocytopenia. Electrolytes including renal and hepatic function stable. Mildly elevated lipase at 81. Historically patient does endorse daily alcohol consumption however declines to quantify the amount. Chest x-ray without critical findings. CT imaging of abdomen pelvis additionally stable. Clinical impression pancreatitis, mild. Discussed these findings with the patient including recommendations for supportive care. Patient counseled for 5 minutes on alcohol cessation. He additionally was provided referrals for PCP and gastroenterology on discharge. Discussed signs and symptoms of any worsening condition and when to consider reevaluation by the emergency department. Patient verbalized an understanding of this and is agreeable to plan to be discharged home. Medical Records Medical records reviewed: Yes I reviewed the patient's medical records Lab Data Lab results reviewed: Yes I reviewed the patient's lab results Labs: Lab Results 03/06/25 03/06/25 03/06/25 Range/Units 13:45 13:49 14:35 WBC 7.5 (4.0-11.0) 10^3/uL RBC 5.41 (4.70-6.10) 10^6/uL Hgb 16.4 (14.0-18.0) g/dL Hct 47.6 (42.0-54.0) % MCV 88.0 (80.0-94.0) fL MCH 30.3 (25.9-34.0) pg MCHC 34.5 (29.9-35.2) g/dL RDW 13.7 (11.0-15.0) % Plt Count 360 (150-450) 10^3/uL MPV 9.4 L (9.5-13.5) fL Neut % (Auto) 57.7 (43.0-75.0) % Lymph % (Auto) 29.4 (20.5-60.0) % [place] % (Auto) 10.5 (1.7-12.0) % Eos % (Auto) 1.6 (0.9-7.0) % Baso % (Auto) 0.5 (0.2-2.0) % Neut # (Auto) 4.3 (1.4-6.5) 10^3/uL Lymph # (Auto) 2.2 (1.2-3.8) 10^3/uL [place] # (Auto) 0.8 (0.3-0.8) 10^3/uL Eos # (Auto) 0.1 (0.0-0.7) 10^3/uL Baso # (Auto) 0.0 (0.0-0.1) 10^3/uL Abs Immat Gran (auto) 0.02 (0.00-0.03) 10^3/uL Imm/Tot Granulo (auto) 0.3 (0.0-0.5) % Sodium 141 (136-145) mmol/L Potassium 4.1 (3.5-5.1) mmol/L Chloride 101 (98-107) mmol/L Carbon Dioxide 25.6 (21.0-32.0) mmol/L Anion Gap 18.5 BUN 18.0 (7.0-18.0) mg/dL Creatinine 1.08 (0.70-1.30) mg/dL Est GFR ( Amer) >60 (>=60 mL/min/1.73m^2) Est GFR (Non-Af Amer) >60 (>=60 mL/min/1.73m^2) BUN/Creatinine Ratio 16.7 Glucose 152 H (74-106) mg/dL Calcium 9.2 (8.5-10.1) mg/dL Total Bilirubin 0.7 (0.2-1.0) mg/dL AST 17 (15-37) U/L ALT 54 (16-63) U/L Alkaline Phosphatase 83 (46-116) U/L Troponin I High Sens 4.7 (4.0-76.1) pg/mL Total Protein 8.8 H (6.4-8.2) g/dL Albumin 4.6 (3.4-5.0) g/dL Globulin 4.2 g/dL Albumin/Globulin Ratio 1.1 Lipase 81.0 H (16.0-77.0) U/L Urine Color Dk. yellow (YELLOW) Urine Clarity Clear (CLEAR) Urine pH 6.0 (5.0-9.0) Ur Specific [place] >=1.030 A (1.005-1.025) Urine Protein 30 A (NEG/TRACE) mg/dL Urine Glucose (UA) Negative (NEGATIVE) mg/dL Urine Ketones 15 A (NEGATIVE) mg/dL Urine Occult Blood Negative (NEGATIVE) Urine Nitrite Negative (NEGATIVE) Urine Bilirubin Moderate A (NEGATIVE) Urine Urobilinogen 1.0 (0.2-1.0) EU/dL Ur Leukocyte Esterase Negative (NEGATIVE) Imaging Data Chest x-ray: Attestation: I have reviewed the pertinent imaging results. Radiologist's impression: ITS Impressions Abdomen/Pelvis CT 03/06/25 14:06 IMPRESSION: No acute findings. Impression dictated by: Pato Garcia M.D. 03/06/2025 3:12 PM Dictation Location: [facility] Electronically authenticated by: [id number] Y Date: 03/06/2025 15:12 Chest X-Ray 03/06/25 14:07 IMPRESSION: No acute process. Impression dictated by: Pato Garcia M.D. 03/06/2025 3:08 PM Dictation Location: [facility] Electronically authenticated by: [id number] Y Date: 03/06/2025 15:08 CT scan - abdomen: Attestation: I have reviewed the pertinent imaging results. Radiologist's impression: ITS Impressions Abdomen/Pelvis CT 03/06/25 14:06 IMPRESSION: No acute findings. Impression dictated by: Pato Garcia M.D. 03/06/2025 3:12 PM Dictation Location: [facility] Electronically authenticated by: [id number] Y Date: 03/06/2025 15:12 Chest X-Ray 03/06/25 14:07 IMPRESSION: No acute process. Impression dictated by: Pato Garcia M.D. 03/06/2025 3:08 PM Dictation Location: [facility] Electronically authenticated by: [id number] Y Date: 03/06/2025 15:08 ECG Data Attestation: I personally reviewed and interpreted this ECG as follows: Discharge Plan Discharge Chief Complaint: Abdominal Pain Clinical Impression: Pancreatitis Patient Disposition: Home, Self-Care Prescriptions / Home Meds: New ondansetron 4 mg tablet,disintegrating 4 mg PO Q8H PRN (Reason: nausea and vomiting) 4 Days Qty: 10 0RF No Action multivitamin Tablet 1 tab PO DAILY biotin 1 tab PO DAILY vitamin A 1 tab PO DAILY Vitamin C 1 tab PO DAILY Vitamin D3 1 tab PO DAILY vitamin E 1 tab PO DAILY vitamin e 1 tab PO DAILY pyridoxine (vitamin B6) 1 tab PO DAILY Vitamin B-12 1 tab PO DAILY Flax seed oil 1 tab PO DAILY [place]-3 1 tab PO DAILY magnesium 1 tab PO DAILY finasteride 1 tab PO DAILY alprazolam [Xanax] 0.5 mg tablet 0.5 mg PO DAILY Print Language: Croatian Instructions: Pancreatitis (ED) Additional Instructions: For the next 48 hours recommend following a clear liquid diet and continue this if you are continuing to have pain -> May advance your diet as tolerated and if your pain is improving. May take Tylenol or ibuprofen as needed for any pain. May take Zofran as needed for any nausea or vomiting. You need to stop drinking alcohol. Please follow-up with the primary care provider and sales manager prearranged funerals for reevaluation from the ER as discussed. May return to the ER with any new or worsening symptoms/concerns. Referrals: Petr Dahl MD [Physician, Family Practice] - 1 week PhysicianAnoop MD [Primary Care Provider] - 1 week Susie Ariza DO [Physician] - 1 week
[2025-03-06 14:21] LABS: Hematocrit 47.6 % (42.0-54.0); Hemoglobin 16.4 g/dL (14.0-18.0); Immature Granulocytes Abs Auto 0.02 10^3/uL (0.00-0.03); Immature Granulocytes Pct Auto 0.3 % (0.0-0.5); Lymphocytes Absolute Auto 2.2 10^3/uL (1.2-3.8); Mean Corpuscular HGB Conc 34.5 g/dL (29.9-35.2); Mean Corpuscular Hemoglobin 30.3 pg (25.9-34.0); Mean Corpuscular Volume 88.0 fL (80.0-94.0); Platelet Count 360 10^3/uL (150-450); Red Blood Count 5.41 10^6/uL (4.70-6.10); White Blood Count 7.5 10^3/uL (4.0-11.0)
[2025-03-06 14:21] LABS: Glucose Urine UA NEGATIVE (NEGATIVE)
[2025-03-06] MEDS: 0.9 % SODIUM CHLORIDE 1,000 ML 1000 ML IV (14:30)
[2025-03-06 15:15] LABS: Alanine Aminotransferase 54 U/L (16-63); Albumin Globulin Ratio 1.1; Albumin Level 4.6 g/dL (3.4-5.0); Alkaline Phosphatase 83 U/L (46-116); Anion Gap 18.5; Aspartate Amino Transferase 17 U/L (15-37); Blood Urea Nitrogen 18.0 mg/dL (7.0-18.0); Calcium 9.2 mg/dL (8.5-10.1); Carbon Dioxide 25.6 mmol/L (21.0-32.0); Chloride 101 mmol/L (98-107); Estimated GFR (African America >60 (>=60 mL/min/1.73m^2); Estimated GFR (Non-African Ame >60 (>=60 mL/min/1.73m^2); Globulin 4.2 g/dL; Glucose 152 mg/dL (74-106); Potassium 4.1 mmol/L (3.5-5.1); Sodium 141 mmol/L (136-145); Total Protein 8.8 g/dL (6.4-8.2)
[2025-03-06 15:17] LABS: Lipase 81.0 U/L (16.0-77.0)
== END 2025-03-06 16:47 | disposition home or self-care (01) ==
PROVIDERS: Nurse Practitioner; Emergency Provider Emergency Medicine
DX: K85.90 Acute pancreatitis without necrosis or infection, unspecified (principal); R10.31 Right lower quadrant pain; R10.32 Left lower quadrant pain; R61 Generalized hyperhidrosis; R11.0 Nausea
CPT/HCPCS: 36415; 71046; 74176; 80053; 81003; 83690; 84484; 85025; 93005; 96374; 99285; J2405